=== PATIENT | female | born 1970 | race Caucasian/White ===

== ENCOUNTER 2016-09-17 00:13 | Inpatient (IN) | payer BC ==
[~2016-09-17] VITALS: Ht 167.6 cm; Wt 78.4 kg
[2016-09-17] VITALS (7 sets, daily range): BP systolic 100–156; BP diastolic 51–95; PULSE 71–90; RESP 14–20; TEMP 97–98.9; O2SAT 98–99
[~2016-09-17 00:13] MED LIST: BENI40TA30 PO; CALA240T PO
[2016-09-17] MEDS ORDERED: SODIUM CHLOR 0.9% 1000 ML INJ 1,000 ML IV ONE (00:39)
[2016-09-17] MEDS ORDERED: MYCOPHENOLATE MOFETIL 500 MG TAB PO SCH (00:45)
[2016-09-17] MEDS ORDERED: SODIUM CHLOR 0.9% IV SCH (00:45)
[2016-09-17] MEDS ORDERED: ANTITHYMOCYTE GLOB IV SCH (00:45)
[2016-09-17] MEDS ORDERED: ceFAZolin 2 GM PREMIX 50 ML IV SCH (00:45)
[2016-09-17] MEDS ORDERED: CUSTODIOL HTK IRR SOLN 2,000 ML IRRIGATION ONE (00:45)
[2016-09-17] MEDS ORDERED: CALC0.25 PO (01:39)
[2016-09-17 01:44] LABS: AUTOMATED NEUTROPHIL # 4.8 TH/MM3 (1.8-7.7); BASOPHIL # 0.1 TH/MM3 (0-0.2); EOSINOPHIL # 0.3 TH/MM3 (0-0.4); EOSINOPHIL % 2.9 % (0.0-4.0); HEMATOCRIT 30.7 % (35.0-46.0); HEMO FLAGS DIFF FINAL; LYMPH % 29.7 % (9.0-44.0); LYMPHOCYTE # 2.6 TH/MM3 (1.0-4.8); MEAN CELL VOLUME 90.2 FL (80.0-100.0); MEAN CORPUSCULAR HEMOGLOBIN 30.4 PG (27.0-34.0); MEAN CORPUSCULAR HGB CONC 33.7 % (32.0-36.0); MONO % 10.8 % (0.0-8.0); NEUT % 55.6 % (16.0-70.0); PLATELET COUNT 187 TH/MM3 (150-450); RED CELL DISTRIBUTION WIDTH 13.3 % (11.6-17.2); WHITE BLOOD COUNT 8.7 TH/MM3 (4.0-11.0)
[2016-09-17 01:56] LABS: APTT (PATIENT) 26.6 SEC (24.3-30.1); INTERNATIONAL NORMALIZED RATIO 0.9 RATIO; PROTHROMBIN TIME - PATIENT 10.2 SEC (9.8-11.6)
--- NOTE | 2016-09-17 01:56 | HHI.HP ---
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 her last GFR was 18; She is currently not on dialysis, and still makes near normal amounts of urine. She denies any recent F/C./N/V/D, no cough or exposure to illneses, denies possible , denies any wounds. Review of Systems Constitutional: DENIES: Diaphoretic episodes, Fatigue, Fever, Weight gain, Weight loss, Chills, Dizziness, Change in appetite, Night Sweats Endocrine: DENIES: Abnorml menstrual pattern, Heat/cold intolerance, Polydipsia , Polyuria, Polyphagia Eyes: DENIES: Blurred vision, Diplopia, Eye inflammation, Eye pain, Vision loss , Photosensitivity, Double Vision Ears, nose, mouth, throat: DENIES: Tinnitus, Hearing loss, Vertigo, Nasal discharge, Oral lesions, Throat pain, Hoarseness, Ear Pain, Running Nose, Epistaxis, Sinus Pain, Toothache, Odynophagia Respiratory: DENIES: Apneas, Cough, Snoring, Wheezing, Hemoptysis, Sputum production, Shortness of breath Cardiovascular: DENIES: Chest pain, Palpitations, Syncope, Dyspnea on Exertion , PND, Lower Extremity Edema, Orthopnea, Claudication Gastrointestinal: DENIES: Abdominal pain, Black stools, Bloody stools, Constipation, Diarrhea, Nausea, Vomiting, Difficulty Swallowing, Anorexia Genitourinary: DENIES: Abnormal vaginal bleeding, Dysmenorrhea, Dyspareunia, Sexual dysfunction, Urinary frequency, Urinary incontinence, Urgency, Hematuria , Dysuria, Nocturia, Vaginal discharge Musculoskeletal: DENIES: Joint pain, Muscle aches, Stiffness, Joint Swelling, Back pain, Neck pain Hematologic/lymphatic: DENIES: Bruising, Lymphadenopathy Neurologic: DENIES: Abnormal gait, Headache, Localized weakness, Paresthesias, Seizures, Speech Problems, Tremor, Poor Balance Psychiatric: DENIES: Anxiety, Confusion, Mood changes, Depression, Hallucinations, Agitation, Suicidal Ideation, Homicidal Ideation, Delusions Past Family Social History Allergies: Coded Allergies: Zithromax (Verified Adverse Reaction, Mild, 02/18/16) Past Medical History HTN IgA Nephropathy CKD leg cramps Past Surgical History Kidney Biopsy Reported Medications No ASA or blood thinners Family History No renal failure disease Social History Denies smoking or Etoh Physical Exam Physical Exam GENERAL: This is a well-nourished, well-developed patient, in no apparent distress. SKIN: No rashes, ecchymoses or lesions. Cool and dry. HEAD: Atraumatic. Normocephalic. No temporal or scalp tenderness. EYES: Pupils equal round and reactive. Extraocular motions intact. No scleral icterus. No injection or drainage. ENT: Nose without bleeding, purulent drainage . Throat without erythema, tonsillar hypertrophy or exudate. Airway patent. NECK: Trachea midline. No JVD or lymphadenopathy. Supple, nontender, no meningeal signs. CARDIOVASCULAR: Regular rate and rhythm with murmurs; no gallops, or rubs. RESPIRATORY: Clear to auscultation. Breath sounds equal bilaterally. No wheezes , rales, or rhonchi. GASTROINTESTINAL: Abdomen soft, non-tender, nondistended. No hepato-splenomegaly , or palpable masses. No guarding. MUSCULOSKELETAL: Extremities without clubbing, cyanosis, or edema. No joint tenderness, effusion, or edema noted. No calf tenderness. NEUROLOGICAL: Awake and alert. Motor and sensory grossly within normal limits. Five out of 5 muscle strength in all muscle groups. Normal speech. Laboratory Labs pending Imaging Chest XR read pending Assessment and Plan Assessment and Plan On 24 hr OBS for possible DD Kidney transplant; Discussed at length with patient and on the risks of graft failure and thrombosis from Pediatric donor kidneys, and they accept the riskd and are williing to proceed, pending crossmatch results. Questions from both patient and her answered. Humphrey Kirk MD Sep 17, 2016 01:56
[2016-09-17 02:03] LABS: ALT (GPT) 17 U/L (10-53); ANION GAP 10 MEQ/L (5-15); AST (GOT) 10 U/L (15-37); BICARBONATE 24.9 MEQ/L (21.0-32.0); BLOOD UREA NITROGEN 51 MG/DL (7-18); CHLORIDE 104 MEQ/L (98-107); GLOMERULAR FILTRATION RATE 16 ML/MIN (>89); POTASSIUM 4.3 MEQ/L (3.5-5.1); SODIUM (NA) 139 MEQ/L (136-145)
[2016-09-17 02:07] LABS: ALKALINE PHOSPHATASE 53 U/L (45-117); BETA HCG QUANT LESS THAN 1 MIU/ML (0-5); TOTAL BILIRUBIN ADULT 0.2 MG/DL (0.2-1.0)
[2016-09-17] MEDS ORDERED: SODIUM CHLORID 0.9% OTHER SCH (05:30)
[2016-09-17] MEDS ORDERED: BACITRACIN OTHER SCH (05:30)
--- NOTE | 2016-09-17 05:44 | RADRPT ---
EXAM DATE/TIME: 09/17/2016 05:14 [facility] COMPARISON: No previous studies available for comparison. INDICATIONS : Evaluate for pneumonia, pneumothorax or communicable disease. Kidney transplant MEDICAL HISTORY : None. SURGICAL HISTORY : None. ENCOUNTER: Initial ACUITY: 1 day PAIN SCORE: 0/10 LOCATION: Bilateral chest FINDINGS: PA and lateral views of the chest demonstrate the lungs to be symmetrically aerated without evidence of mass, infiltrate or effusion. The cardiomediastinal contours are unremarkable. Osseous structure s are intact. CONCLUSION: Normal examination. Robert Dukes MD on September 17, 2016 at 5:42 Board Certified Radiologist. This report was verified electronically.
[2016-09-17] MEDS ORDERED: DEXAMETHASONE SOD PHOS 4 MG/ML VIAL ONE (06:16)
[2016-09-17] MEDS ORDERED: MIDAZOLAM HCL 2 MG/2 ML VIAL ONE ×4 (06:16→12:52)
[2016-09-17] MEDS ORDERED: BUPIVACAINE HCL PF 0.5% 30 ML VIAL ONE (06:29)
[2016-09-17] MEDS ORDERED: diphenhydrAMINE HCL 50 MG/ML VIAL ONE (06:30)
[2016-09-17] MEDS ORDERED: SODIUM BICARBONATE 8.4% INJ 50 MEQ/50 ML SYR ONE (06:30)
[2016-09-17] MEDS ORDERED: methylPREDNISolone SOD SUCC 125 MG/2 ML VIAL ONE (06:30)
[2016-09-17] MEDS ORDERED: LIDOCAINE HCL 2% 50 ML VIAL ONE (06:30)
[2016-09-17] MEDS ORDERED: fentaNYL CITRATE 250 MCG/5 ML AMP ONE ×2 (06:43→07:13)
[2016-09-17] MEDS ORDERED: HYDROmorphone HCL PF 2 MG/ML VIAL ONE (06:43)
[2016-09-17] MEDS ORDERED: ACETAMINOPHEN 1000 MG/100 ML VIAL IV ONE (06:58)
[2016-09-17] MEDS: LACTATED RINGER'S 1000 ML IV SCH (07:15)
[2016-09-17] MEDS ORDERED: INSULIN HUMAN REGULAR 1,000 UNITS/10 ML VIAL SQ PRN (07:15)
[2016-09-17] MEDS: SODIUM CHLORID 0.9% 500 ML IV SCH ×2 (07:15→23:55)
[2016-09-17] MEDS ORDERED: METOPROLOL TARTRATE 25 MG TAB PO PRN (07:15)
[2016-09-17] MEDS ORDERED: CISATRACURIUM BESYLATE 20 MG/10 ML VIAL IV ONE (07:55)
[2016-09-17] MEDS ORDERED: NEOSTIGMINE 3 MG/3 ML SYR IV ONE (07:56)
[2016-09-17] MEDS ORDERED: PROPOFOL 200 MG/20 ML AMP IV ONE (07:56)
[2016-09-17] MEDS ORDERED: ePHEDrine/NS 25 MG/5 ML SYR IV ONE (07:56)
[2016-09-17] MEDS ORDERED: NORMOSOL R INJ 1,000 ML IV ONE (07:57)
[2016-09-17] MEDS ORDERED: PHENYLEPH/NS 1000 MCG/10 ML SYR IV ONE (07:57)
[2016-09-17] MEDS ORDERED: SODIUM CHLOR 0.9% 250 ML INJ 250 ML IV ONE (07:57)
[2016-09-17] MEDS ORDERED: HEPARIN SODIUM - SQ 10,000 UNITS/ML VIAL OTHER ONE (08:55)
[2016-09-17 09:09] LABS: BLOOD GAS BASE EXCESS -5.1 mmol/L (-2-2); BLOOD GAS CARBOXYHEMOGLOBIN 1.5 % (0-4); BLOOD GAS HCO3 19 mmol/L (22-26); BLOOD GAS METHEMOGLOBIN 1.2 % (0-2); BLOOD GAS O2 HGB SATURATION 97 % (90-100); BLOOD GAS OXYGEN CONTENT 14.6 Vol % (12.0-20.0); BLOOD GAS PCO2 30 mmHg (38-42); BLOOD GAS PO2 275 mmHg (61-120); BLOOD GAS TOTAL HGB 10.2 G/DL (12.0-16.0); CRITICAL VALUE NO; DRAW SITE ART LINE; FIO2 56 %; OXYGEN DEVICE OR; STAT YES; TEMP CORR TO 98.6
[2016-09-17] MEDS ORDERED: ceFAZolin INJ 1,000 MG VIAL IV ONE (10:10)
[2016-09-17 12:50] LABS: BLOOD GAS BASE EXCESS -6.8 mmol/L (-2-2); BLOOD GAS CARBOXYHEMOGLOBIN 1.2 % (0-4); BLOOD GAS HCO3 18 mmol/L (22-26); BLOOD GAS METHEMOGLOBIN 1.4 % (0-2); BLOOD GAS O2 HGB SATURATION 97 % (90-100); BLOOD GAS OXYGEN CONTENT 14.7 Vol % (12.0-20.0); BLOOD GAS PCO2 33 mmHg (38-42); BLOOD GAS PO2 275 mmHg (61-120); BLOOD GAS TOTAL HGB 10.3 G/DL (12.0-16.0); CRITICAL VALUE NO; FIO2 56 %; OXYGEN DEVICE OR; TEMP CORR TO 98.6
[2016-09-17] MEDS ORDERED: ceFAZolin INJ 1,000 MG VIAL ONE (14:15)
--- NOTE | 2016-09-17 14:49 | EKG ---
Date Performed: 09/17/2016 Time Performed: 01:43:06 PTAGE: 46 years EKG: Sinus rhythm Normal ECG NO PREVIOUS TRACING DOCTOR: Doroteo Toledo Interpretating Date/Time 09/17/2016 14:42:39
[2016-09-17] MEDS ORDERED: DO NOT ADM ANY ANTICOAGULANT DRUGS XX PRN (15:07)
[2016-09-17] MEDS ORDERED: *LABETALOL HCL 100 MG/20 ML VIAL PERIprocedural Use ONLY ONE (15:13)
[2016-09-17] MEDS ORDERED: *morphine SULFATE 8 MG/ML PERIprocedure ONLY ONE ×3 (15:28→16:10)
[2016-09-17] MEDS ORDERED: *ONDANSETRON 4 MG VIAL PERIprocedural Use ONLY ONE (15:28)
[2016-09-17] MEDS ORDERED: NALOXONE HCL 0.4 MG/ML AMP IV PRN (16:30)
[2016-09-17] MEDS ORDERED: MORPHINE SULFATE 30 MG/30 ML PCA IV SCH (16:30)
[2016-09-17] MEDS ORDERED: diphenhydrAMINE HCL 25 MG CAP PO PRN (16:30)
[2016-09-17] MEDS ORDERED: GLUCAGON 1 MG/ML VIAL OTHER PRN (16:30)
[2016-09-17] MEDS ORDERED: RESP: ALBUTEROL 2.5 MG/IPRATROPIUM 0.5 MG NEB (PRN) INH (16:30)
[2016-09-17] MEDS ORDERED: DEXTROSE 50% IN WATER 50 ML VIAL(D50) IV PUSH PRN (16:30)
[2016-09-17] MEDS ORDERED: ONDANSETRON INJ 8 MG in DEXTROSE 5% IN WATER INJ 50 ML IV PRN ×2 (16:30)
[2016-09-17] MEDS ORDERED: diphenhydrAMINE HCL 50 MG/ML VIAL IV PRN (16:30)
--- NOTE | 2016-09-17 16:34 | RADRPT ---
EXAM DATE/TIME: 09/17/2016 15:35 [facility] COMPARISON: No previous studies available for comparison. INDICATIONS : Central line placement. MEDICAL HISTORY : None. SURGICAL HISTORY : kidney transplant ENCOUNTER: Initial ACUITY: 1 day PAIN SCORE: 0/10 LOCATION: Bilateral chest FINDINGS: A single view of the chest demonstrates the lungs to be symmetrically aerated without evidence of mas s, infiltrate or effusion. The cardiomediastinal contours are unremarkable. The right internal jugu lar central line has its tip in the superior vena cava in good position. No pneumothorax is noted. Os seous structures are intact. CONCLUSION: Right internal jugular central line has its tip in the superior vena cava. No pneumot horax is noted. José Miguel Tapia MD on September 17, 2016 at 16:32 Board Certified Radiologist. This report was verified electronically.
--- NOTE | 2016-09-17 16:41 | PD.OP ---
Operative Report Date of Surgery: Sep 17, 2016 Preoperative Diagnosis: (1) CKD (chronic kidney disease) stage 4, GFR 15-29 ml/min Postoperative Diagnosis: (1) CKD (chronic kidney disease) stage 4, GFR 15-29 ml/min Procedure: Preparation and reimplantation of transplant kidney ureters Anesthesia: General Surgeon: Francisco Dos Santos Hris Manager(s): Dr. Kalani Kirk Operation and Findings: Consulted intraoperatively to assist with preparation and reimplantation of transplant ureters from a cadaveric pediatric donor with en block kidneys/ ureters Urologic surgery component of procedures: Upon completion of the vascular anastomoses from the donor specimen, I proceeded with positioning, tailoring and reimplantation of the 2 transplant ureters. The bladder was filled via a three-way Slater with 500 cc normal saline and transplant sites were marked. The Bovie cautery was then utilized to dissect down to the mucosal layer of the bladder. Stay sutures were then placed utilizing 6-0 PDS material. The ureters were trimmed down to viable tissue and spatulated utilizing Goff scissors. And the initial suture consisting of 6-0 PDS was placed in position via the heel of the spatulated ureters, the bladder insertion sites were sharply opened between the stay sutures. And the spatulated ureters were anastomosed utilizing the 6-0 PDS suture in a running fashion. Edges of the bladder serosa was then mobilized over the anastomotic site and secured with 6- 0 PDS as well. This completes the urologic surgery portion of combined procedures on this patient. Francisco Dos Santos MD Sep 17, 2016 16:40
[2016-09-17] MEDS: DEXT 5%-NACL 0.45% 1000 ML INJ 1,000 ML IV SCH (17:00)
[2016-09-17 17:18] LABS: AUTOMATED NEUTROPHIL # 14.9 TH/MM3 (1.8-7.7); BASOPHIL # 0.1 TH/MM3 (0-0.2); BASOPHIL % 0.5 % (0.0-2.0); EOSINOPHIL % 0.1 % (0.0-4.0); HEMATOCRIT 28.4 % (35.0-46.0); HEMO FLAGS DIFF FINAL; LYMPH % 0.3 % (9.0-44.0); MEAN CELL VOLUME 90.6 FL (80.0-100.0); MEAN CORPUSCULAR HEMOGLOBIN 30.4 PG (27.0-34.0); MEAN CORPUSCULAR HGB CONC 33.5 % (32.0-36.0); MONO % 1.9 % (0.0-8.0); NEUT % 97.2 % (16.0-70.0); PLATELET COUNT 135 TH/MM3 (150-450); RED BLOOD COUNT 3.13 MIL/MM3 (4.00-5.30); RED CELL DISTRIBUTION WIDTH 13.3 % (11.6-17.2); WHITE BLOOD COUNT 15.3 TH/MM3 (4.0-11.0)
[2016-09-17 17:35] LABS: BICARBONATE 20.6 MEQ/L (21.0-32.0); MAGNESIUM 2.1 MG/DL (1.5-2.5); POTASSIUM 4.6 MEQ/L (3.5-5.1)
[2016-09-17 17:50] LABS: CALCIUM-PROTEIN CORRECTED 7.8 MG/DL (8.5-10.1)
[2016-09-17] MEDS: VERAPAMIL HCL 240 MG SUSTAINED RELEASE TAB PO ONE ×2 (19:30→20:40)
[2016-09-17] MEDS: DOCUSATE SODIUM 100 MG CAP PO SCH (21:36)
[2016-09-17] MEDS: INSULIN NovoLIN REGULAR SUPPLEMENTAL SCALE SQ SCH (21:36)
[2016-09-17] MEDS: NYSTATIN SUSP 500,000 U/5 ML CUP SWISH-SWAL SCH (21:37)
--- NOTE | 2016-09-17 21:38 | MB ---
cc: WILLY MCLEAN MD DATE OF CONSULTATION 09/17/16 REASON FOR CONSULTATION Post renal transplant status. HISTORY OF PRESENT ILLNESS This is a very pleasant 46-year-old female with past medical history of chronic kidney disease because of IgA nephropathy, history of hypertension who was admitted for cadaveric renal transplant. The patient underwent the surgery uneventfully. Her GFR has been 18 mL per minute pre transplant and she has never been on dialysis. She was evaluated by Dr. Gil in the transplant clinic in March. The patient was awake, alert and feeling better. There is no shortness of breath. No chest pain. No cough, no history of fever. PAST MEDICAL HISTORY 1. Hypertension. 2. IgA nephropathy, 3. Chronic kidney disease, 4. History of leg cramps PAST SURGICAL HISTORY None except kidney biopsy. REVIEW OF SYSTEMS Denies any history of fever. No sore throat. No headache, dizziness or blurring of vision. No shortness of breath. No chest pain. No palpitation. No nausea, vomiting. No abdominal pain. No history of diarrhea. She has mild pain at the site of the transplant. SOCIAL HISTORY There is no history of smoking or alcoholism FAMILY HISTORY Negative for any renal disease. ALLERGIES ZITHROMAX MEDICATIONS Currently 1. Mycophenolate 1 gram b.i.d. 2. Calcium carbonate 500 mg b.i.d. 3. She was given antithrombocyte ____cyclovir 900 mg once a day 4. Bactrim DS 1 tablet Wednesday, Wednesday, Wednesday. 5. Protonix 40 mg once a day, 6. Cephazolin 1 gram IV q.8 h. 7. Insulin sliding scale. 8. Metoprolol as needed. 9. Clonidine as needed. 10. Zofran as needed PHYSICAL EXAMINATION GENERAL: On examination, the patient is awake, alert. She is not in acute distress. VITAL SIGNS: Last blood pressure is 150/85, temperature is 97.8, oxygen saturation is 99% on 2 liters nasal cannula. HEENT: Pupils equally reacting to light. Nonicteric sclerae. Conjunctivae pale. NECK: Supple. JVD is not elevated LUNGS: The patient has bilateral good air entry. No wheezing. HEART: S1, S2, regular rhythm. ABDOMEN: Soft, lax. There is some tenderness around the surgical site. EXTREMITIES: There is no leg edema LABORATORY DATA WBC count is 15.3, hemoglobin 9.5, platelet count 135, neutrophils 97.2%. Sodium 141. Potassium 4.6, chloride 111, bicarb 20.6, BUN 47, creatinine 12.86. Calcium corrected 7.8, phosphorus 4.7. Magnesium is 2.1, total protein is 5.5. Albumin is 3.8. HCG was less than one, INR 0.9. IMAGING STUDIES The patient had a chest x-ray done which shows lung field clear. ASSESSMENT/PLAN 1. Post cadaveric renal transplant 2. Chronic kidney disease with history of IgA nephropathy. 3. Hypertension 4. Anemia Patient had cadaveric renal transplant done. She has slight increase in her blood pressure. She has been at home on Verapamil so we will put her on the same dose 240 mg and continue the p.r.n. medications for the blood pressure. Thank you for the consultation and I will follow the patient while she is in the hospital. MD SANDY Beltrán/ /6:57 PM /9:21 PM
[2016-09-17] MEDS: PCA - TOTAL MG MORPHINE DELIVERED PER SHIFT SCH (22:00)
[2016-09-18] VITALS (11 sets, daily range): BP systolic 129–140; BP diastolic 67–86; PULSE 76–110; RESP 12–20; TEMP 98.6–99; O2SAT 95–99
[2016-09-18 05:37] LABS: AUTOMATED NEUTROPHIL # 12.2 TH/MM3 (1.8-7.7); BASOPHIL # 0.1 TH/MM3 (0-0.2); BASOPHIL % 0.5 % (0.0-2.0); HEMO FLAGS DIFF FINAL; LYMPH % 0.6 % (9.0-44.0); LYMPHOCYTE # 0.1 TH/MM3 (1.0-4.8); MEAN CELL VOLUME 90.7 FL (80.0-100.0); MEAN CORPUSCULAR HGB CONC 33.1 % (32.0-36.0); MONO % 2.7 % (0.0-8.0); NEUT % 96.2 % (16.0-70.0); PLATELET COUNT 121 TH/MM3 (150-450); RED BLOOD COUNT 2.98 MIL/MM3 (4.00-5.30); RED CELL DISTRIBUTION WIDTH 13.8 % (11.6-17.2); WHITE BLOOD COUNT 12.6 TH/MM3 (4.0-11.0)
[2016-09-18] MEDS: PCA - TOTAL MG MORPHINE DELIVERED PER SHIFT SCH (06:00)
[2016-09-18] MEDS: MYCOPHENOLATE MOFETIL 500 MG TAB PO SCH (06:01)
[2016-09-18 06:13] LABS: BICARBONATE 18.1 MEQ/L (21.0-32.0); MAGNESIUM 2.5 MG/DL (1.5-2.5); POTASSIUM 4.8 MEQ/L (3.5-5.1)
[2016-09-18 06:26] LABS: CALCIUM-PROTEIN CORRECTED 7.6 MG/DL (8.5-10.1)
[2016-09-18] MEDS: INSULIN NovoLIN REGULAR SUPPLEMENTAL SCALE SQ SCH ×4 (07:00→21:00)
[2016-09-18] MEDS: LACTATED RINGER'S 1000 ML IV SCH (07:15)
[2016-09-18] MEDS ORDERED: DEXT 5%-NACL 0.45% 500 ML INJ 500 ML IV ONE (08:30)
[2016-09-18] MEDS: DOCUSATE SODIUM 100 MG CAP PO SCH ×2 (09:00→20:40)
[2016-09-18] MEDS ORDERED: CALCIUM CARBONATE 500 MG CHEWABLE TAB CHEW SCH (09:00)
[2016-09-18] MEDS: SULFAMETHOXAZOLE-TRIMETHOPRIM DS 800-160 MG TAB PO SCH (09:00)
[2016-09-18] MEDS: NYSTATIN SUSP 500,000 U/5 ML CUP SWISH-SWAL SCH ×3 (09:00→20:34)
--- NOTE | 2016-09-18 09:07 | HHI.PR ---
Subjective Remarks Awake and alert this AM, slept well overnight, had some N/V with PO meds, c/o RLQ discomfort, no flatus Objective Laboratory Tests Test 09/17/16 09/17/16 09/18/16 12:37 16:50 05:22 Blood Gas Puncture Site DRAWN IN OR Blood Gas Patient Temperature 98.6 Blood Gas HCO3 18 Blood Gas Base Excess -6.8 Blood Gas Oxygen Saturation 97 Arterial Blood pH 7.35 Arterial Blood Partial 33 Pressure CO2 Arterial Blood Partial 275 Pressure O2 Arterial Blood Oxygen Content 14.7 Arterial Blood 1.2 Carboxyhemoglobin Arterial Blood Methemoglobin 1.4 Blood Gas Hemoglobin 10.3 Oxygen Delivery Device OR Blood Gas Inspired Oxygen 56 White Blood Count 15.3 12.6 Red Blood Count 3.13 2.98 Hemoglobin 9.5 8.9 Hematocrit 28.4 27.0 Mean Corpuscular Volume 90.6 90.7 Mean Corpuscular Hemoglobin 30.4 30.0 Mean Corpuscular Hemoglobin 33.5 33.1 Concent Red Cell Distribution Width 13.3 13.8 Platelet Count 135 121 Mean Platelet Volume 9.2 9.1 Neutrophils (%) (Auto) 97.2 96.2 Lymphocytes (%) (Auto) 0.3 0.6 Monocytes (%) (Auto) 1.9 2.7 Eosinophils (%) (Auto) 0.1 0.0 Basophils (%) (Auto) 0.5 0.5 Neutrophils # (Auto) 14.9 12.2 Lymphocytes # (Auto) 0.0 0.1 Monocytes # (Auto) 0.3 0.3 Eosinophils # (Auto) 0.0 0.0 Basophils # (Auto) 0.1 0.1 CBC Comment DIFF FINAL DIFF FINAL Differential Comment Sodium Level 141 141 Potassium Level 4.6 4.8 Chloride Level 111 113 Carbon Dioxide Level 20.6 18.1 Anion Gap 9 10 Blood Urea Nitrogen 47 47 Creatinine 2.86 2.52 Estimat Glomerular Filtration 18 21 Rate Random Glucose 203 140 Calcium Level 7.0 6.8 Protein Corrected Calcium 7.8 7.6 Phosphorus Level 4.7 4.0 Magnesium Level 2.1 2.5 Total Protein 5.5 5.5 Vital Signs Date Time Temp Pulse Resp B/P Pulse Ox O2 Delivery O2 Flow Rate FiO2 09/18/16 08:00 96 Room Air 09/18/16 08:00 99.0 92 20 131/78 96 135/72 09/18/16 07:00 99 09/18/16 06:00 18 09/18/16 03:00 99 Nasal Cannula 2.00 09/18/16 03:00 76 09/18/16 03:00 99.0 81 20 99 130/67 09/17/16 23:00 75 09/17/16 23:00 98.7 78 20 100/54 99 110/67 09/17/16 23:00 99 Nasal Cannula 2.00 09/17/16 22:00 18 09/17/16 21:13 99 Nasal Cannula 2.00 09/17/16 21:00 108/51 09/17/16 20:00 118/64 09/17/16 19:00 82 09/17/16 19:00 98 Nasal Cannula 2.00 09/17/16 19:00 98.9 71 18 145/78 98 144/93 09/17/16 18:00 97.8 89 14 155/88 98 09/17/16 18:00 98 Room Air 09/17/16 17:30 80 16 111/75 99 Nasal Cannula 2 09/17/16 17:00 84 16 137/87 99 Nasal Cannula 2 09/17/16 16:45 76 16 123/71 99 Nasal Cannula 2 09/17/16 16:30 74 16 115/64 99 Nasal Cannula 2 09/17/16 16:15 72 16 115/72 99 Nasal Cannula 2 09/17/16 16:00 70 16 128/73 99 Nasal Cannula 2 09/17/16 15:45 74 16 145/75 99 Nasal Cannula 2 09/17/16 15:30 88 16 151/79 99 Nasal Cannula 2 09/17/16 15:15 120 16 173/117 99 Nasal Cannula 2 09/17/16 15:07 97.8 104 16 164/101 99 Nasal Cannula 2 I/O 09/17/16 09/17/16 09/17/16 09/18/16 09/18/16 09/18/16 07:00 15:00 23:00 07:00 15:00 23:00 Intake Total 0 ml 200 ml 1631 ml Output Total 1100 ml 150 ml 451 ml Balance -1100 ml 50 ml 1180 ml Intake Oral 0 ml 600 ml IV Total 0 ml 200 ml 1031 ml Output Urine Total 1100 ml 150 ml 401 ml Drainage Total 50 ml # Bowel Movements 2 0 Result Diagram: 09/18/1652109/18/16521 Other Results Mouth: dry Abd: soft, NT, ND; dressing C/D/I Slater: [place] urine Drain: serosang Assessment and Plan Assessment and Plan Recovering ok from anesthesia; appears dry, will bolus and increase maintenance IVF; increase PO calcium; d/c [place], but will keep on bedrest for graft adherance. Humphrey Kirk MD Sep 18, 2016 09:07
[2016-09-18] MEDS: PANTOPRAZOLE SODIUM 40 MG VIAL IV PUSH SCH (09:47)
--- NOTE | 2016-09-18 09:47 | HHI.PR ---
Subjective Patient symptoms today Postop day #1 Overall doing well with the exception of feeling nauseated Pain well managed Objective Vital Signs Vital Signs Date Time Temp Pulse Resp B/P Pulse Ox O2 Delivery O2 Flow Rate FiO2 09/18/16 08:00 96 Room Air 09/18/16 08:00 99.0 92 20 131/78 96 135/72 09/18/16 07:00 99 09/18/16 06:00 18 09/18/16 03:00 99 Nasal Cannula 2.00 09/18/16 03:00 76 09/18/16 03:00 99.0 81 20 99 130/67 09/17/16 23:00 75 09/17/16 23:00 98.7 78 20 100/54 99 110/67 09/17/16 23:00 99 Nasal Cannula 2.00 09/17/16 22:00 18 09/17/16 21:13 99 Nasal Cannula 2.00 09/17/16 21:00 108/51 09/17/16 20:00 118/64 09/17/16 19:00 82 09/17/16 19:00 98 Nasal Cannula 2.00 09/17/16 19:00 98.9 71 18 145/78 98 144/93 09/17/16 18:00 97.8 89 14 155/88 98 09/17/16 18:00 98 Room Air 09/17/16 17:30 80 16 111/75 99 Nasal Cannula 2 09/17/16 17:00 84 16 137/87 99 Nasal Cannula 2 09/17/16 16:45 76 16 123/71 99 Nasal Cannula 2 09/17/16 16:30 74 16 115/64 99 Nasal Cannula 2 09/17/16 16:15 72 16 115/72 99 Nasal Cannula 2 09/17/16 16:00 70 16 128/73 99 Nasal Cannula 2 09/17/16 15:45 74 16 145/75 99 Nasal Cannula 2 09/17/16 15:30 88 16 151/79 99 Nasal Cannula 2 09/17/16 15:15 120 16 173/117 99 Nasal Cannula 2 09/17/16 15:07 97.8 104 16 164/101 99 Nasal Cannula 2 Intake & Output 09/18/16 09/18/16 07:00 19:00 Intake Total 1631 ml Output Total 451 ml Balance 1180 ml Intake Oral 600 ml IV Total 1031 ml Output Urine Total 401 ml Drainage Total 50 ml # Bowel Movements 0 Result Diagram: 09/18/1652109/18/16521 Objective Remarks Abdomen soft, nondistended nontender Dressing intact Extremities well-perfused Slater catheter in place and draining blood-tinged urine Medications and IVs Current Medications Medications (Trade) Dose Ordered Sig/Karol Route Start Time Stop Time Status Last Admin (Lr 1000 ml Inj) 1,000 ml @ 30 mls/hr Q24H IV 09/17/16 07:15 Miscellaneous Information ALL NURSING DEPARTME... UNSCH PRN XX 09/17/16 15:07 09/18/16 15:06 Dextrose/Sodium Chloride 1,000 ml @ 83 mls/hr Q12H3M IV 09/17/16 16:22 09/17/16 17:00 (1/2 NS 1000 ml Inj) 1,000 ml @ 0 mls/hr Q0M IV 09/17/16 16:22 (Cellcept) 1,000 mg BID@06,18 PO 09/18/16 06:00 09/18/16 06:01 (Mycostatin Liq) 5 ml TID@,,21 SWISH-SWAL 09/17/16 21:00 09/17/16 21:37 (Bactrim Ds 800-160 Mg) 1 tab MoWeFr@09 PO 09/18/16 09:00 (Valcyte) 900 mg DAILY PO 09/18/16 09:00 (Protonix Inj) 40 mg DAILY IV PUSH 09/18/16 09:00 (Colace) 100 mg BID PO 09/17/16 21:00 09/17/16 21:36 (Dulcolax Ec) 10 mg UNSCH PRN PO 09/20/16 16:30 09/20/16 16:31 (Dulcolax Supp) 10 mg UNSCH PRN RECTAL 09/20/16 16:30 09/20/16 16:31 Ondansetron HCl 4 mg 4 mg Q6H PRN IV 09/17/16 16:30 (Zofran Inj/D5W Inj) 54 ml @ 200 mls/hr Q6H PRN IV 09/17/16 16:30 09/18/16 05:45 (Benadryl) 25 mg Q6H PRN PO 09/17/16 16:30 (Benadryl Inj) 25 mg Q6H PRN IV 09/17/16 16:30 (Narcan Inj) 0.4 mg UNSCH PRN IV 09/17/16 16:30 (Morphine 1 Mg/ ml [employer]) 30 mg UNSCH IV 09/17/16 16:30 [employer] Dosage Infused (Pha) 1 Q8HR .XX 09/17/16 22:00 09/18/16 06:00 (D50w (Vial) Inj) 25 ml UNSCH PRN IV PUSH 09/17/16 16:30 Glucagon 1 mg 1 mg UNSCH PRN OTHER 09/17/16 16:30 (D5W-1/2 NS 500 ml Inj) 500 ml @ 125 mls/hr BOLUS ONCE IV 09/18/16 08:30 09/18/16 12:29 (Tums Chew) 500 mg TID CHEW 09/18/16 13:00 Assessment and Plan Assessment and Plan Urologic impression: Status post cadaveric kidney transplant utilizing two en block pediatric kidneys with expected postop course. Plan: #1 further management as per transplant and nephrology services. #2 will be available as needed during present hospitalization. Francisco Dos Santos MD Sep 18, 2016 09:47
[2016-09-18] MEDS: ONDANSETRON HCL 4 MG/2 ML VIAL IV PRN (11:46)
[2016-09-18] MEDS: CALCIUM CARBONATE 500 MG CHEWABLE TAB CHEW SCH ×2 (11:47→17:31)
--- NOTE | 2016-09-18 12:30 | HHI.NPPN ---
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 Additional Remarks Patient has anxiety, crying and has pain at surgery site, no SOB. Review of Systems General Constitutional: Fatigue Objective Data Data 09/17/16 09/18/16 19:00 07:00 Intake Total 200 ml 1631 ml Output Total 150 ml 451 ml Balance 50 ml 1180 ml Intake Oral 600 ml IV Total 200 ml 1031 ml Output Urine Total 150 ml 401 ml Drainage Total 50 ml # Bowel Movements 0 Vital Signs Date Time Temp Pulse Resp B/P Pulse Ox O2 Delivery O2 Flow Rate FiO2 09/18/16 12:00 98 Nasal Cannula 09/18/16 12:00 99.0 92 20 131/78 96 135/72 09/18/16 12:00 82 09/18/16 08:00 96 Room Air 09/18/16 08:00 99.0 92 20 131/78 96 135/72 09/18/16 07:00 99 09/18/16 06:00 18 09/18/16 03:00 99 Nasal Cannula 2.00 09/18/16 03:00 76 09/18/16 03:00 99.0 81 20 99 130/67 09/17/16 23:00 75 09/17/16 23:00 98.7 78 20 100/54 99 110/67 09/17/16 23:00 99 Nasal Cannula 2.00 09/17/16 22:00 18 09/17/16 21:13 99 Nasal Cannula 2.00 09/17/16 21:00 108/51 09/17/16 20:00 118/64 09/17/16 19:00 82 09/17/16 19:00 98 Nasal Cannula 2.00 09/17/16 19:00 98.9 71 18 145/78 98 144/93 09/17/16 18:00 97.8 89 14 155/88 98 09/17/16 18:00 98 Room Air 09/17/16 17:30 80 16 111/75 99 Nasal Cannula 2 09/17/16 17:00 84 16 137/87 99 Nasal Cannula 2 09/17/16 16:45 76 16 123/71 99 Nasal Cannula 2 09/17/16 16:30 74 16 115/64 99 Nasal Cannula 2 09/17/16 16:15 72 16 115/72 99 Nasal Cannula 2 09/17/16 16:00 70 16 128/73 99 Nasal Cannula 2 09/17/16 15:45 74 16 145/75 99 Nasal Cannula 2 09/17/16 15:30 88 16 151/79 99 Nasal Cannula 2 09/17/16 15:15 120 16 173/117 99 Nasal Cannula 2 09/17/16 15:07 97.8 104 16 164/101 99 Nasal Cannula 2 -: 09/18/16 0522 09/18/16 0522 Physical Exam General Appearance: No Acute Distress, Comfortable Eyes Eye Exam: Pupils Equal Throat Throat Exam: Oral Mucosa [place] & Moist Neck Neck Exam: Neck Supple Pulmonary Resp Exam: Clear Bilaterally, Breath Sounds Equal, No Distress Cardiology CV Exam: Regular Gastrointestinal/Abdomen GI Exam: Soft, Bowel Sounds Present, Distended Extremeties Extremities Exam: No Edema Neurologic Neuro Exam: Alert, Awake, Oriented Psychiatric Psych Exam: Appropriate Responses Assessment/Plan Assessment Summary: Hypertension, Transplant Kidney Status Electrolyte Assessment: Hypocalcemia Problem List: (1) Hypertension (2) CKD (chronic kidney disease) stage 4, GFR 15-29 ml/min (3) Hypocalcemia (4) Renal transplant, status post Plan Patient has anxiety, will give Ativan. Has nausea with Morphine, will try Dilaudid. BP increase due to pain and anxiety, was better. ATG again today, 1.5 mg/kg. Creatinine is slightly better. Calcium is low and started PO replacement. Follow urine out put and BMP. Possibly to start Prograf in AM. Odilia Huff MD Sep 18, 2016 12:29
[2016-09-18] MEDS: HYDROmorphone HCL PF 1 MG/ML VIAL IV PUSH PRN ×2 (12:47→19:14)
[2016-09-18] MEDS ORDERED: [UNRECOGNIZED DRUG - OTHER] XX PRN (14:00)
[2016-09-18] MEDS ORDERED: PROCHLORPERAZINE INJ 10 MG/2 ML VIAL IVP ONE (14:00)
[2016-09-18] MEDS ORDERED: PROCHLORPERAZINE INJ 10 MG/2 ML VIAL IV ONE (14:15)
[2016-09-18] MEDS: WATE IV SCH ×2 (18:11)
[2016-09-18] MEDS: DEXTROSE 5% IV SCH ×2 (18:11)
[2016-09-18] MEDS: MYCOPHENOLATE MOFETIL IV SCH ×2 (18:11)
[2016-09-18] MEDS ORDERED: methylPREDNISolone SOD SUCC 125 MG/2 ML VIAL IV ONE (19:00)
[2016-09-18] MEDS: PROCHLORPERAZINE INJ 10 MG/2 ML VIAL IVP PRN (19:27)
[2016-09-18] MEDS ORDERED: diphenhydrAMINE HCL 50 MG CAP PO ONE (19:30)
[2016-09-18] MEDS ORDERED: ACETAMINOPHEN 325 MG TAB PO ONE (19:30)
[2016-09-18] MEDS ORDERED: diphenhydrAMINE HCL 50 MG/ML VIAL IV PUSH ONE (19:30)
[2016-09-18] MEDS ORDERED: SODIUM CHLORID 0.9% IV-CENTRAL ONE (20:00)
[2016-09-18] MEDS ORDERED: ANTITHYMOCYTE GLOB IV-CENTRAL ONE (20:00)
[2016-09-18] MEDS: DEXT 5%-NACL 0.45% 1000 ML INJ 1,000 ML IV SCH (20:24)
[2016-09-18] MEDS: SODIUM CHLOR 0.45% 1000 ML INJ 1,000 ML IV SCH (20:24)
[2016-09-18] MEDS: LORazepam 1 MG TAB PO PRN (20:33)
[2016-09-19] VITALS (8 sets, daily range): BP systolic 138–172; BP diastolic 84–106; PULSE 75–128; RESP 12–22; TEMP 98.1–98.9; O2SAT 96–97
[2016-09-19] MEDS: HYDROmorphone HCL PF 1 MG/ML VIAL IV PUSH PRN ×4 (01:20→21:10)
[2016-09-19] MEDS: PROCHLORPERAZINE INJ 10 MG/2 ML VIAL IVP PRN ×3 (01:25→21:33)
[2016-09-19] MEDS: SODIUM CHLOR 0.45% 1000 ML INJ 1,000 ML IV SCH ×4 (05:30→21:33)
[2016-09-19] MEDS: DEXTROSE 5% IV SCH ×2 (05:31)
[2016-09-19] MEDS: MYCOPHENOLATE MOFETIL IV SCH ×2 (05:31)
[2016-09-19] MEDS: WATE IV SCH ×2 (05:31)
[2016-09-19] MEDS: DEXT 5%-NACL 0.45% 1000 ML INJ 1,000 ML IV SCH ×3 (05:32→21:33)
[2016-09-19 06:00] LABS: BASOPHIL % 0.1 % (0.0-2.0); HEMATOCRIT 26.5 % (35.0-46.0); LYMPH % 1.3 % (9.0-44.0); LYMPHOCYTE # 0.1 TH/MM3 (1.0-4.8); MEAN CELL VOLUME 91.3 FL (80.0-100.0); MEAN CORPUSCULAR HEMOGLOBIN 30.5 PG (27.0-34.0); MEAN CORPUSCULAR HGB CONC 33.4 % (32.0-36.0); MONO % 3.4 % (0.0-8.0); NEUT % 95.2 % (16.0-70.0); PLATELET COUNT 76 TH/MM3 (150-450); RED CELL DISTRIBUTION WIDTH 13.7 % (11.6-17.2); WHITE BLOOD COUNT 4.2 TH/MM3 (4.0-11.0)
[2016-09-19 06:06] LABS: HEMO FLAGS AUTO DIFF
[2016-09-19 06:32] LABS: BICARBONATE 21.6 MEQ/L (21.0-32.0); MAGNESIUM 2.3 MG/DL (1.5-2.5); POTASSIUM 4.6 MEQ/L (3.5-5.1)
[2016-09-19] MEDS: INSULIN NovoLIN REGULAR SUPPLEMENTAL SCALE SQ SCH ×4 (06:42→21:36)
[2016-09-19 06:51] LABS: CALCIUM-PROTEIN CORRECTED 7.6 MG/DL (8.5-10.1)
[2016-09-19] MEDS: LACTATED RINGER'S 1000 ML IV SCH (07:15)
[2016-09-19] MEDS: NYSTATIN SUSP 500,000 U/5 ML CUP SWISH-SWAL SCH ×3 (08:52→20:07)
[2016-09-19] MEDS: DOCUSATE SODIUM 100 MG CAP PO SCH ×2 (08:53→20:08)
[2016-09-19] MEDS: CALCIUM CARBONATE 500 MG CHEWABLE TAB CHEW SCH ×3 (08:53→18:10)
[2016-09-19] MEDS: PANTOPRAZOLE SODIUM 40 MG VIAL IV PUSH SCH (08:54)
[2016-09-19 09:05] LABS: PLATELET ESTIMATE SMEAR LOW (NORMAL); PLATELET MORPHOLOGY NORMAL (NORMAL); SCAN/DIFF AUTO DIFF CONFIRMED
--- NOTE | 2016-09-19 10:03 | HHI.PR ---
Subjective Remarks Awake but drowsy this AM, received pain meds early this morning; has N/V with narcotics, symptomatic relief with Compazine, passed flatus; had 1 hour of marked decrease of urine output to none, Slater exchanged with clot noted on tip , new Slater placed with good flow re-established; 450 cc collected; Objective Laboratory Tests Test 09/19/16 05:40 White Blood Count 4.2 Red Blood Count 2.90 Hemoglobin 8.8 Hematocrit 26.5 Mean Corpuscular Volume 91.3 Mean Corpuscular Hemoglobin 30.5 Mean Corpuscular Hemoglobin 33.4 Concent Red Cell Distribution Width 13.7 Platelet Count 76 Mean Platelet Volume 9.9 Neutrophils (%) (Auto) 95.2 Lymphocytes (%) (Auto) 1.3 Monocytes (%) (Auto) 3.4 Eosinophils (%) (Auto) 0.0 Basophils (%) (Auto) 0.1 Neutrophils # (Auto) 4.0 Lymphocytes # (Auto) 0.1 Monocytes # (Auto) 0.1 Eosinophils # (Auto) 0.0 Basophils # (Auto) 0.0 CBC Comment AUTO DIFF Differential Comment AUTO DIFF CONFIRMED Platelet Estimate LOW Platelet Morphology Comment NORMAL Sodium Level 141 Potassium Level 4.6 Chloride Level 113 Carbon Dioxide Level 21.6 Anion Gap 6 Blood Urea Nitrogen 20 Creatinine 1.21 Estimat Glomerular Filtration 48 Rate Random Glucose 164 Calcium Level 6.8 Protein Corrected Calcium 7.6 Phosphorus Level 2.2 Magnesium Level 2.3 Total Protein 5.6 Vital Signs Date Time Temp Pulse Resp B/P Pulse Ox O2 Delivery O2 Flow Rate FiO2 09/19/16 09:19 21 09/19/16 07:00 98.6 75 22 155/92 97 09/19/16 07:00 97 Room Air 09/19/16 07:00 75 09/19/16 04:00 98.9 87 12 138/88 96 09/19/16 03:00 96 Room Air 09/19/16 03:00 84 09/18/16 23:00 85 09/18/16 23:00 98.7 91 12 129/81 96 09/18/16 23:00 96 Room Air 09/18/16 22:05 97 21 09/18/16 19:30 98.7 89 20 129/86 96 09/18/16 19:00 110 09/18/16 19:00 96 Room Air 09/18/16 17:44 95 21 09/18/16 15:37 97 Nasal Cannula 09/18/16 15:17 98.6 92 20 140/79 96 Arterial Line 09/18/16 15:00 86 09/18/16 13:17 18 09/18/16 12:00 98 Nasal Cannula 09/18/16 12:00 98.9 92 20 129/80 96 Arterial Line 09/18/16 12:00 82 I/O 09/18/16 09/18/16 09/18/16 09/19/16 09/19/16 09/19/16 07:00 15:00 23:00 07:00 15:00 23:00 Intake Total 1631 ml 2400 ml 4345 ml Output Total 451 ml 1105 ml 2515 ml Balance 1180 ml 1295 ml 1830 ml Intake Oral 600 ml 240 ml 240 ml IV Total 1031 ml 2160 ml 4105 ml Output Urine Total 401 ml 1060 ml 2495 ml Drainage Total 50 ml 45 ml 20 ml # Bowel Movements 0 0 0 Result Diagram: 09/19/16 0540 09/19/16 0540 Objective Remarks Remains on room air -Abd soft, NT/ ND Incsn: C/D/I, no erythema, slim in place Drain site dry Ext with mild edema Assessment and Plan Assessment and Plan Appears sensitive to narcotics, will decrease dose and co-administer anti- emetics; prefer not to use NSAIDS, ? adequacy of just acetaminophen, but may use IV form as adjunct; Concern on bladder outlet obstruction and impingement on renal vein outflow; will monitor urine output, may need to ultrasound for flow and perfusion; if no thrombosis clinically or by US, can start PO Tacrolimus; --also, will allow some reverse Trendelenburg after 6 PM Humphrey Florentino MD Sep 19, 2016 10:02
[2016-09-19] MEDS ORDERED: ACETAMINOPHEN 1000 MG/100 ML VIAL IV ONE (10:28)
[2016-09-19] MEDS ORDERED: SODIUM PHOSPHATE INJ 30 MMOL in SODIUM CHLOR 0.9% 250 ML INJ 250 ML IV ONE (11:00)
[2016-09-19] MEDS ORDERED: ACETAMINOPHEN 1000 MG/100 ML VIAL IV PRN (12:00)
--- NOTE | 2016-09-19 14:35 | HHI.NPPN ---
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 Additional Remarks Patient has anxiety, better today Review of Systems General Constitutional: Fatigue Objective Data Data 09/18/16 09/19/16 19:00 07:00 Intake Total 2400 ml 4345 ml Output Total 1105 ml 2515 ml Balance 1295 ml 1830 ml Intake Oral 240 ml 240 ml IV Total 2160 ml 4105 ml Output Urine Total 1060 ml 2495 ml Drainage Total 45 ml 20 ml # Bowel Movements 0 0 Vital Signs Date Time Temp Pulse Resp B/P Pulse Ox O2 Delivery O2 Flow Rate FiO2 09/19/16 11:00 97 Room Air 09/19/16 11:00 98.1 80 20 140/84 97 09/19/16 11:00 80 09/19/16 09:19 21 09/19/16 07:00 98.6 75 22 155/92 97 09/19/16 07:00 97 Room Air 09/19/16 07:00 75 09/19/16 04:00 98.9 87 12 138/88 96 09/19/16 03:00 96 Room Air 09/19/16 03:00 84 09/18/16 23:00 85 09/18/16 23:00 98.7 91 12 129/81 96 09/18/16 23:00 96 Room Air 09/18/16 22:05 97 21 09/18/16 19:30 98.7 89 20 129/86 96 09/18/16 19:00 110 09/18/16 19:00 96 Room Air 09/18/16 17:44 95 21 09/18/16 15:37 97 Nasal Cannula 09/18/16 15:17 98.6 92 20 140/79 96 Arterial Line 09/18/16 15:00 86 -: 09/19/16 0540 09/19/16 0540 Physical Exam General Appearance: No Acute Distress, Comfortable Eyes Eye Exam: Pupils Equal Throat Throat Exam: Oral Mucosa [place] & Moist Neck Neck Exam: Neck Supple Pulmonary Resp Exam: Clear Bilaterally, Breath Sounds Equal, No Distress Cardiology CV Exam: Tachycardia Gastrointestinal/Abdomen GI Exam: Soft, Bowel Sounds Present GI Remarks surgery rt lower quadrant Extremeties Extremities Exam: No Edema Neurologic Neuro Exam: Alert, Awake, Oriented Psychiatric Psych Exam: Appropriate Responses Assessment/Plan Assessment Summary: Hypertension, Transplant Kidney Status Electrolyte Assessment: Hypocalcemia Problem List: (1) Hypertension (2) CKD (chronic kidney disease) stage 4, GFR 15-29 ml/min (3) Hypocalcemia (4) Renal transplant, status post Plan low platelets received 2 doses Thymo, will give SoluMedrol 40 mg IV today Cr 1.2 start Prograf 4 mg q 12, Prednisone 20 mg daily as she has IgA with taper continue Cellcept give Labetalol for heart rate/BP issues K Phos for low po4 Gladys Gil MD Sep 19, 2016 14:35
[2016-09-19] MEDS ORDERED: methylPREDNISolone SOD SUCC 40 MG/1 ML VIAL IV ONE (14:45)
[2016-09-19] MEDS ORDERED: MYCOPHENOLATE MOFETIL IV SCH ×2 (18:00)
[2016-09-19] MEDS ORDERED: WATE IV SCH ×2 (18:00)
[2016-09-19] MEDS ORDERED: DEXTROSE 5% IV SCH ×2 (18:00)
[2016-09-19] MEDS: TACROLIMUS 1 MG CAP PO SCH (18:10)
--- NOTE | 2016-09-19 19:06 | RADRPT ---
EXAM DATE/TIME: 09/19/2016 16:01 [facility] COMPARISON: No previous studies available for comparison. INDICATIONS : Decreased urine output s/p renal transplant. MEDICAL HISTORY : Hypertension. Stage 4 renal disease. IGA nephropathy. SURGICAL HISTORY : Renal transplant. Renal biopsy. ENCOUNTER: Initial ACUITY: 1 day PAIN SCORE: 7/10 LOCATION: Right lower quadrant MEASUREMENTS: TRANSPLANT KIDNEY: 7.5 x 3.8 x 4.1 cm LOCATION: Right lower quadrant. ARCUATE ARTERIES RESISTIVE INDEX: Upper - 0.7 Mid - 0.7 Lower - 0.7 RA/EIA Ratio: 0.4 MAIN RENAL ARTERY VELOCITY: (cm/sec): 110 MAIN RENAL VEIN: Patent EXTERNAL ILIAC ARTERY VELOCITY (cm/sec): 277 * NORMAL DOPPLER FINDINGS Arcuate arteries - RI = 0.6 - 0.8 Renal artery = under 200 cm/sec Renal vein = May be monophasic with continuous flow or demonstrate some pulsatility with cardiac cycl e FINDINGS: 2 pediatric kidneys were transplanted into the right lower quadrant. Measurements of the more medial kidney are as above. Lateral kidney measures 7.1 x 4.1 x 3.9 cm with resistive indices of 0.6 in the upper, mid and lower pole. Main renal artery velocity is 88 cm/s. Main renal vein is patent. CONCLUSION: 1. Measurements of 2 transplanted kidneys in the right lower quadrant are as above. Resistive indices are between 0.6 and 0.7. Both renal arteries and renal veins are patent. Dagoberto Heller MD on September 19, 2016 at 19:02 Board Certified Radiologist. This report was verified electronically.
[2016-09-19] MEDS: LABETALOL HCL 200 MG TAB PO SCH (20:06)
[2016-09-19] MEDS: POTASSIUM PHOSPHATE MONOBASIC 500 MG TAB PO SCH (20:08)
[2016-09-19] MEDS: LORazepam 1 MG TAB PO PRN (21:09)
[2016-09-19] MEDS: LABETALOL HCL 100 MG/20 ML VIAL IV PUSH PRN ×3 (21:19→22:09)
[2016-09-19] MEDS: NIFEdipine 30 MG SUSTAINED RELEASE TAB PO SCH (23:00)
--- NOTE | 2016-09-19 23:36 | HHI.PR ---
Subjective Remarks CTSP re decrease in UO; Progressive loss in urine flow rate from 400, 275, 150, 50; BP and HR controlled, less anxiety; Objective Vital Signs Date Time Temp Pulse Resp B/P Pulse Ox O2 Delivery O2 Flow Rate FiO2 09/19/16 21:05 21 09/19/16 19:00 128 09/19/16 19:00 98.9 121 20 172/106 96 09/19/16 19:00 96 Room Air 09/19/16 16:36 98.7 100 20 158/98 96 09/19/16 15:00 100 09/19/16 15:00 96 Room Air 09/19/16 11:00 97 Room Air 09/19/16 11:00 98.1 80 20 140/84 97 09/19/16 11:00 80 09/19/16 09:19 21 09/19/16 07:00 98.6 75 22 155/92 97 09/19/16 07:00 97 Room Air 09/19/16 07:00 75 09/19/16 04:00 98.9 87 12 138/88 96 09/19/16 03:00 96 Room Air 09/19/16 03:00 84 I/O 09/18/16 09/18/16 09/18/16 09/19/16 09/19/16 09/19/16 07:00 15:00 23:00 07:00 15:00 23:00 Intake Total 1631 ml 2400 ml 4345 ml 3306 ml Output Total 451 ml 1105 ml 2515 ml 2005 ml Balance 1180 ml 1295 ml 1830 ml 1301 ml Intake Oral 600 ml 240 ml 240 ml 220 ml IV Total 1031 ml 2160 ml 4105 ml 3086 ml Output Urine Total 401 ml 1060 ml 2495 ml 1985 ml Drainage Total 50 ml 45 ml 20 ml 20 ml # Bowel Movements 0 0 0 0 Result Diagram: 09/19/16 0540 09/19/16 0540 Other Results Awake and answers all questions appropriately; back in bed, no c/o pain, urine clear straw colored, 45 cc in subsequent hour Objective Remarks Remains on room air -Abd soft, NT/ ND Incsn: C/D/I, no erythema, slim in place Drain site dry Ext with mild edema Assessment and Plan Assessment and Plan Acute decrease in UO, will return to bed, stat US ordered to r/o thrombosis, monitor UO hourly (currently back to baseline rate from [place] [facility]) Humphrey Kirk MD Sep 19, 2016 23:36
[2016-09-20] VITALS (8 sets, daily range): BP systolic 125–160; BP diastolic 84–104; PULSE 82–122; RESP 16–20; TEMP 98.1–98.6; O2SAT 96–97
[2016-09-20] MEDS: HYDROmorphone HCL PF 1 MG/ML VIAL IV PUSH PRN ×3 (02:00→21:55)
[2016-09-20] MEDS: PROCHLORPERAZINE INJ 10 MG/2 ML VIAL IVP PRN ×2 (02:00→22:57)
--- NOTE | 2016-09-20 02:15 | RADRPT ---
EXAM DATE/TIME: 09/20/2016 00:20 [facility] COMPARISON: US KIDNEY / TRANSPLANT, September 19, 2016, 16:01. INDICATIONS : Decreased in urine output. Compare to previous study. MEDICAL HISTORY : Hypertension. Renal disease. IGH neuropathy. SURGICAL HISTORY : Renal biopsy. Two pediatric renal transplants. ENCOUNTER: Subsequent ACUITY: 2 days PAIN SCORE: 4/10 LOCATION: Right lower quadrant MEASUREMENTS: TRANSPLANT KIDNEY: 7.9 x 3.6 x 3.9 cm (more lateral transplant) 7.8 x 3.7 x 4.1 cm(more medial transplant) LOCATION: Right lower quadrant. PREVIOUS ULTRASOUND: Sep 19 2016 PREVIOUS ARCUATE ARTERIES INDEX: Upper - LAT 0.6 / MED 0.7 Mid - LAT 0.6 / MED 0.7 Lower - LAT 0.6 / MED 0.7 ARCUATE ARTERIES RESISTIVE INDEX: Upper - LAT 0.6 / MED 0.7 Mid - LAT 0.6 / MED 0.6 Lower - LAT 0.7 / MED 0.6 RA/EIA Ratio: LAT 0.4 / MED 0.5 MAIN RENAL ARTERY VELOCITY: (cm/sec): LAT 126 & MED 138 MAIN RENAL VEIN: Patent EXTERNAL ILIAC ARTERY VELOCITY (cm/sec): 294 * NORMAL DOPPLER FINDINGS Arcuate arteries - RI = 0.6 - 0.8 Renal artery = under 200 cm/sec Renal vein = May be monophasic with continuous flow or demonstrate some pulsatility with cardiac cycl e FINDINGS: TRANSPLANT KIDNEY: Post transplant show normal cortical thickness and echotexture. No hydronephrosis, stone, or mass. No peritransplant fluid collection. URINARY BLADDER: Within normal limits given the degree of distension. There is a Slater balloon present with minimal di stention of the bladder. CONCLUSION: 1. An elevated velocity is seen involving the external iliac artery. This can be seen with areas of s tenosis. I am unsure if this patient had a CTA of the pelvis prior to the renal transplant. If the pa tient did not have this consider CTA of the abdomen and pelvis to evaluate the right external iliac a rtery for stenosis. 2. Transplant show no obstruction or Doppler abnormality. Santy Le Jr., MD on September 20, 2016 at 1:36 Board Certified Radiologist. This report was verified electronically.
[2016-09-20] MEDS: DEXT 5%-NACL 0.45% 1000 ML INJ 1,000 ML IV SCH (05:22)
[2016-09-20] MEDS: SODIUM CHLOR 0.45% 1000 ML INJ 1,000 ML IV SCH (05:22)
[2016-09-20 05:31] LABS: AUTOMATED NEUTROPHIL # 4.3 TH/MM3 (1.8-7.7); BASOPHIL % 0.1 % (0.0-2.0); EOSINOPHIL % 0.1 % (0.0-4.0); HEMATOCRIT 23.4 % (35.0-46.0); LYMPH % 3.4 % (9.0-44.0); LYMPHOCYTE # 0.2 TH/MM3 (1.0-4.8); MEAN CELL VOLUME 91.3 FL (80.0-100.0); MEAN CORPUSCULAR HEMOGLOBIN 30.8 PG (27.0-34.0); MEAN CORPUSCULAR HGB CONC 33.7 % (32.0-36.0); MONO % 7.2 % (0.0-8.0); NEUT % 89.2 % (16.0-70.0); PLATELET COUNT 78 TH/MM3 (150-450); RED BLOOD COUNT 2.57 MIL/MM3 (4.00-5.30); RED CELL DISTRIBUTION WIDTH 13.8 % (11.6-17.2); WHITE BLOOD COUNT 4.9 TH/MM3 (4.0-11.0)
[2016-09-20 05:35] LABS: HEMO FLAGS AUTO DIFF
[2016-09-20 05:54] LABS: BICARBONATE 22.6 MEQ/L (21.0-32.0); MAGNESIUM 2.2 MG/DL (1.5-2.5); POTASSIUM 3.9 MEQ/L (3.5-5.1)
[2016-09-20] MEDS: MYCOPHENOLATE MOFETIL 500 MG TAB PO SCH ×2 (06:00→17:46)
[2016-09-20] MEDS: INSULIN NovoLIN REGULAR SUPPLEMENTAL SCALE SQ SCH ×4 (06:01→21:59)
[2016-09-20] MEDS: TACROLIMUS 1 MG CAP PO SCH ×2 (06:01→17:47)
[2016-09-20 06:08] LABS: CALCIUM-PROTEIN CORRECTED 8.1 MG/DL (8.5-10.1)
[2016-09-20] MEDS: LACTATED RINGER'S 1000 ML IV SCH (07:15)
[2016-09-20] MEDS: CALCIUM CARBONATE 500 MG CHEWABLE TAB CHEW SCH ×3 (09:49→17:46)
[2016-09-20] MEDS: NYSTATIN SUSP 500,000 U/5 ML CUP SWISH-SWAL SCH ×3 (09:49→20:39)
[2016-09-20] MEDS: PANTOPRAZOLE SODIUM 40 MG VIAL IV PUSH SCH (09:49)
[2016-09-20] MEDS: POTASSIUM PHOSPHATE MONOBASIC 500 MG TAB PO SCH ×2 (09:49→20:36)
[2016-09-20] MEDS: LABETALOL HCL 200 MG TAB PO SCH ×2 (09:50→20:36)
[2016-09-20] MEDS: predniSONE 20 MG TAB PO SCH (09:50)
[2016-09-20] MEDS: DOCUSATE SODIUM 100 MG CAP PO SCH ×2 (09:50→20:36)
[2016-09-20] MEDS: NIFEdipine 30 MG SUSTAINED RELEASE TAB PO SCH (09:50)
[2016-09-20] MEDS ORDERED: SODIUM PHOSPHATE INJ 30 MMOL in SODIUM CHLOR 0.9% 250 ML INJ 250 ML IV ONE (10:00)
[2016-09-20 10:45] LABS: OVALOCYTES 1+ (NORMAL); PLATELET ESTIMATE SMEAR LOW (NORMAL); PLATELET MORPHOLOGY NORMAL (NORMAL); SCAN/DIFF AUTO DIFF CONFIRMED
--- NOTE | 2016-09-20 12:25 | HHI.PR ---
Subjective Remarks Pt much calmer this AM, slept well, no c/o nausea. Gentry liquids, not very hungry , cont to pass flatus. US results show maintained perfusion. Objective Last Impressions Renal Ultrasound 09/19/16 1325 Signed Impressions: Service Date/Time: Monday, September 19, 2016 16:01 - CONCLUSION: 1. Measurements of 2 transplanted kidneys in the right lower quadrant are as above. Resistive indices are between 0.6 and 0.7. Both renal arteries and renal veins are patent. Dagoberto Heller MD Chest X-Ray 09/17/16 0000 Signed Impressions: Service Date/Time: August 15:35 - CONCLUSION: Right internal jugular central line has its tip in the superior vena cava. No pneumothorax is noted. José Miguel Tapia MD Laboratory Tests Test 09/20/16 05:00 White Blood Count 4.9 Red Blood Count 2.57 Hemoglobin 7.9 Hematocrit 23.4 Mean Corpuscular Volume 91.3 Mean Corpuscular Hemoglobin 30.8 Mean Corpuscular Hemoglobin 33.7 Concent Red Cell Distribution Width 13.8 Platelet Count 78 Mean Platelet Volume 9.7 Neutrophils (%) (Auto) 89.2 Lymphocytes (%) (Auto) 3.4 Monocytes (%) (Auto) 7.2 Eosinophils (%) (Auto) 0.1 Basophils (%) (Auto) 0.1 Neutrophils # (Auto) 4.3 Lymphocytes # (Auto) 0.2 Monocytes # (Auto) 0.4 Eosinophils # (Auto) 0.0 Basophils # (Auto) 0.0 CBC Comment AUTO DIFF Differential Comment AUTO DIFF CONFIRMED Platelet Estimate LOW Platelet Morphology Comment NORMAL Ovalocytes 1+ Sodium Level 142 Potassium Level 3.9 Chloride Level 112 Carbon Dioxide Level 22.6 Anion Gap 7 Blood Urea Nitrogen 12 Creatinine 0.88 Estimat Glomerular Filtration 69 Rate Random Glucose 140 Calcium Level 7.0 Protein Corrected Calcium 8.1 Phosphorus Level 2.3 Magnesium Level 2.2 Total Protein 5.1 Vital Signs Date Time Temp Pulse Resp B/P Pulse Ox O2 Delivery O2 Flow Rate FiO2 09/20/16 07:00 91 09/20/16 07:00 98.6 91 18 140/86 97 09/20/16 07:00 97 Room Air 09/20/16 03:00 98.2 92 16 125/84 96 09/20/16 03:00 97 Room Air 09/20/16 03:00 90 09/19/16 23:00 96 Room Air 09/19/16 23:00 106 09/19/16 23:00 98.4 92 16 154/96 96 09/19/16 21:05 21 09/19/16 19:00 128 09/19/16 19:00 98.9 121 20 172/106 96 09/19/16 19:00 96 Room Air 09/19/16 16:36 98.7 100 20 158/98 96 09/19/16 15:00 100 09/19/16 15:00 96 Room Air I/O 09/19/16 09/19/16 09/19/16 09/20/16 09/20/16 09/20/16 07:00 15:00 23:00 07:00 15:00 23:00 Intake Total 4345 ml 3306 ml 3536 ml Output Total 2515 ml 2005 ml 1850 ml Balance 1830 ml 1301 ml 1686 ml Intake Oral 240 ml 220 ml 720 ml IV Total 4105 ml 3086 ml 2816 ml Output Urine Total 2495 ml 1985 ml 1820 ml Drainage Total 20 ml 20 ml 30 ml # Bowel Movements 0 0 0 Result Diagram: 09/20/16 0500 09/20/16 0500 Objective Remarks Remains on room air -Abd soft, NT/ ND Incsn: C/D/I, no erythema, slim in place Drain site dry Ext with edema Slater urine clear and colorless Medications and IVs Off Thymoglobulin, started on PO Tacrolimus Assessment and Plan Assessment and Plan Diuresis continues, Creatinine normal, will discontinue IV fluid replacement; continue maintenance IV until tolerate PO better; Allograft perfusion/output appears positional, will allow for ambulation but resume Reverse Trend when in bed. Will discuss with Urology on [employer] [facility]. Humphrey Kirk MD Sep 20, 2016 12:25
--- NOTE | 2016-09-20 13:19 | HHI.NPPN ---
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 Additional Remarks Patient has anxiety, better today Review of Systems General Constitutional: Fatigue Objective Data Data 09/19/16 09/20/16 19:00 07:00 Intake Total 3306 ml 3536 ml Output Total 2005 ml 1850 ml Balance 1301 ml 1686 ml Intake Oral 220 ml 720 ml IV Total 3086 ml 2816 ml Output Urine Total 1985 ml 1820 ml Drainage Total 20 ml 30 ml # Bowel Movements 0 0 Vital Signs Date Time Temp Pulse Resp B/P Pulse Ox O2 Delivery O2 Flow Rate FiO2 09/20/16 11:00 98.6 122 20 152/99 97 09/20/16 11:00 97 Room Air 09/20/16 11:00 122 09/20/16 07:00 91 09/20/16 07:00 98.6 91 18 140/86 97 09/20/16 07:00 97 Room Air 09/20/16 03:00 98.2 92 16 125/84 96 09/20/16 03:00 97 Room Air 09/20/16 03:00 90 09/19/16 23:00 96 Room Air 09/19/16 23:00 106 09/19/16 23:00 98.4 92 16 154/96 96 09/19/16 21:05 21 09/19/16 19:00 128 09/19/16 19:00 98.9 121 20 172/106 96 09/19/16 19:00 96 Room Air 09/19/16 16:36 98.7 100 20 158/98 96 09/19/16 15:00 100 09/19/16 15:00 96 Room Air -: 09/20/16 0500 09/20/16 0500 Physical Exam General Appearance: No Acute Distress, Comfortable Eyes Eye Exam: Pupils Equal Throat Throat Exam: Oral Mucosa [place] & Moist Neck Neck Exam: Neck Supple Pulmonary Resp Exam: Clear Bilaterally, Breath Sounds Equal, No Distress Cardiology CV Exam: Tachycardia Gastrointestinal/Abdomen GI Exam: Soft, Bowel Sounds Present GI Remarks surgery rt lower quadrant Extremeties Extremities Exam: No Edema Neurologic Neuro Exam: Alert, Awake, Oriented Psychiatric Psych Exam: Appropriate Responses Assessment/Plan Assessment Summary: Hypertension, Transplant Kidney Status Problem List: (1) Hypertension (2) CKD (chronic kidney disease) stage 4, GFR 15-29 ml/min (3) Hypocalcemia (4) Renal transplant, status post Plan low platelets still in 70's on oral Prednisone and Prograf monitor level Cr 0.88 Transplant US good flow iliac vessel high velocity unknown etiology start Prograf 4 mg q 12, Prednisone 20 mg daily as she has IgA with taper continue Cellcept given Labetalol for heart rate/BP issues added Procardia and clonidine K Phos for low po4 getting NaPO4 Gladys Gil MD Sep 20, 2016 13:19
[2016-09-20] MEDS: LABETALOL HCL 100 MG/20 ML VIAL IV PUSH PRN ×2 (16:03→20:36)
[2016-09-20] MEDS ORDERED: BISACODYL EC 5 MG TABEC PO PRN (16:30)
[2016-09-20] MEDS ORDERED: BISACODYL 10 MG SUPP RECTAL PRN (16:30)
[2016-09-20] MEDS: cloNIDine HCL 0.1 MG TAB PO PRN ×2 (16:47→22:23)
[2016-09-21] VITALS (11 sets, daily range): BP systolic 128–163; BP diastolic 88–109; PULSE 73–122; RESP 16–18; TEMP 98.1–99.1; O2SAT 96–100
[2016-09-21] MEDS: DEXT 5%-NACL 0.45% 1000 ML INJ 1,000 ML IV SCH (00:58)
[2016-09-21 05:51] LABS: AUTOMATED NEUTROPHIL # 3.8 TH/MM3 (1.8-7.7); BASOPHIL % 0.2 % (0.0-2.0); EOSINOPHIL % 0.3 % (0.0-4.0); HEMATOCRIT 22.9 % (35.0-46.0); LYMPH % 6.7 % (9.0-44.0); LYMPHOCYTE # 0.3 TH/MM3 (1.0-4.8); MEAN CELL VOLUME 89.7 FL (80.0-100.0); MEAN CORPUSCULAR HEMOGLOBIN 30.5 PG (27.0-34.0); MEAN CORPUSCULAR HGB CONC 34.1 % (32.0-36.0); NEUT % 82.8 % (16.0-70.0); PLATELET COUNT 89 TH/MM3 (150-450); RED BLOOD COUNT 2.56 MIL/MM3 (4.00-5.30); RED CELL DISTRIBUTION WIDTH 13.4 % (11.6-17.2); WHITE BLOOD COUNT 4.6 TH/MM3 (4.0-11.0)
[2016-09-21 05:52] LABS: BICARBONATE 24.5 MEQ/L (21.0-32.0); POTASSIUM 3.5 MEQ/L (3.5-5.1)
[2016-09-21 05:59] LABS: HEMO FLAGS AUTO DIFF
[2016-09-21] MEDS: TACROLIMUS 1 MG CAP PO SCH (06:07)
[2016-09-21] MEDS: MYCOPHENOLATE MOFETIL 500 MG TAB PO SCH ×2 (06:07→18:40)
[2016-09-21] MEDS: INSULIN NovoLIN REGULAR SUPPLEMENTAL SCALE SQ SCH (06:29)
[2016-09-21 07:33] LABS: KERATOCYTES OCC (NORMAL); PLATELET ESTIMATE SMEAR LOW (NORMAL); PLATELET MORPHOLOGY NORMAL (NORMAL); SCAN/DIFF AUTO DIFF CONFIRMED
[2016-09-21] MEDS ORDERED: HYDROmorphone HCL 2 MG TAB PO PRN (08:45)
--- NOTE | 2016-09-21 08:50 | HHI.PR ---
Subjective Remarks Sitting in reclined chair, slept well, no c/o nausea. Gentry liquids, (+) BM. Fluctuating but good UO overnight Objective Laboratory Tests Test 09/21/16 05:08 White Blood Count 4.6 Red Blood Count 2.56 Hemoglobin 7.8 Hematocrit 22.9 Mean Corpuscular Volume 89.7 Mean Corpuscular Hemoglobin 30.5 Mean Corpuscular Hemoglobin 34.1 Concent Red Cell Distribution Width 13.4 Platelet Count 89 Mean Platelet Volume 9.4 Neutrophils (%) (Auto) 82.8 Lymphocytes (%) (Auto) 6.7 Monocytes (%) (Auto) 10.0 Eosinophils (%) (Auto) 0.3 Basophils (%) (Auto) 0.2 Neutrophils # (Auto) 3.8 Lymphocytes # (Auto) 0.3 Monocytes # (Auto) 0.5 Eosinophils # (Auto) 0.0 Basophils # (Auto) 0.0 CBC Comment AUTO DIFF Differential Comment AUTO DIFF CONFIRMED Platelet Estimate LOW Platelet Morphology Comment NORMAL Keratocytes OCC Sodium Level 144 Potassium Level 3.5 Chloride Level 111 Carbon Dioxide Level 24.5 Anion Gap 9 Blood Urea Nitrogen 9 Creatinine 0.81 Estimat Glomerular Filtration 76 Rate Random Glucose 126 Calcium Level 8.2 Phosphorus Level 2.6 Magnesium Level 2.0 Vital Signs Date Time Temp Pulse Resp B/P Pulse Ox O2 Delivery O2 Flow Rate FiO2 09/21/16 03:00 98.1 73 16 128/92 96 09/21/16 03:00 90 09/21/16 03:00 98 Room Air 09/20/16 23:00 92 09/20/16 23:00 96 Room Air 09/20/16 23:00 98.1 90 20 138/89 96 09/20/16 19:12 98 09/20/16 19:00 98.2 104 16 160/104 96 09/20/16 19:00 97 Room Air 09/20/16 15:00 97 Room Air 09/20/16 15:00 82 09/20/16 15:00 98.4 82 20 155/95 97 09/20/16 11:00 98.6 122 20 152/99 97 09/20/16 11:00 97 Room Air 09/20/16 11:00 122 I/O 09/20/16 09/20/16 09/20/16 09/21/16 09/21/16 09/21/16 07:00 15:00 23:00 07:00 15:00 23:00 Intake Total 3536 ml 1688 ml 1836 ml Output Total 1850 ml 4030 ml 3190 ml Balance 1686 ml -2342 ml -1354 ml Intake Oral 720 ml 480 ml 840 ml IV Total 2816 ml 1208 ml 996 ml Output Urine Total 1820 ml 4000 ml 3150 ml Drainage Total 30 ml 30 ml 40 ml # Bowel Movements 0 0 2 Result Diagram: 09/21/1650709/21/16507 Objective Remarks Remains on room air -Abd soft, NT/ ND Incsn: C/D/I, no erythema, slim in place Drain site dry Ext with edema Slater urine clear and colorless Assessment and Plan Assessment and Plan Diuresis continues, Creatinine normal, will discontinue maintenance IV fluid , advance diet; Allograft perfusion/output appears less positional, ambulating well; will keep Slater in as per Urology. Humphrey Kirk MD Sep 21, 2016 08:49
[2016-09-21] MEDS: POTASSIUM PHOSPHATE MONOBASIC 500 MG TAB PO SCH ×2 (08:54→20:41)
[2016-09-21] MEDS: NYSTATIN SUSP 500,000 U/5 ML CUP SWISH-SWAL SCH ×3 (08:54→20:41)
[2016-09-21] MEDS: NIFEdipine 30 MG SUSTAINED RELEASE TAB PO SCH (08:55)
[2016-09-21] MEDS: LABETALOL HCL 200 MG TAB PO SCH ×2 (08:55→20:41)
[2016-09-21] MEDS: CALCIUM CARBONATE 500 MG CHEWABLE TAB CHEW SCH ×3 (08:55→18:40)
[2016-09-21] MEDS: SULFAMETHOXAZOLE-TRIMETHOPRIM DS 800-160 MG TAB PO SCH (08:55)
[2016-09-21] MEDS: DOCUSATE SODIUM 100 MG CAP PO SCH ×2 (08:55→20:41)
[2016-09-21] MEDS: predniSONE 20 MG TAB PO SCH (08:56)
[2016-09-21] MEDS: PANTOPRAZOLE SODIUM 40 MG VIAL IV PUSH SCH (08:56)
[2016-09-21] MEDS: HYDROmorphone HCL PF 1 MG/ML VIAL IV PUSH PRN (08:58)
[2016-09-21] MEDS: PROCHLORPERAZINE INJ 10 MG/2 ML VIAL IVP PRN (09:01)
[2016-09-21] MEDS ORDERED: PILL SPLITTER OTHER PRN (09:15)
[2016-09-21 10:40] LABS: STAT YES
[2016-09-21] MEDS ORDERED: POTASSIUM PHOSPHATE INJ 30 MMOL in SODIUM CHLOR 0.9% 250 ML INJ 250 ML IV ONE (11:00)
--- NOTE | 2016-09-21 14:53 | HHI.NPPN ---
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 Additional Remarks Patient has anxiety, better today Review of Systems General Constitutional: Fatigue Objective Data Data 09/20/16 09/21/16 19:00 07:00 Intake Total 1688 ml 1836 ml Output Total 4030 ml 3190 ml Balance -2342 ml -1354 ml Intake Oral 480 ml 840 ml IV Total 1208 ml 996 ml Output Urine Total 4000 ml 3150 ml Drainage Total 30 ml 40 ml # Bowel Movements 0 2 Vital Signs Date Time Temp Pulse Resp B/P Pulse Ox O2 Delivery O2 Flow Rate FiO2 09/21/16 11:00 98.2 113 16 134/88 98 09/21/16 11:00 82 09/21/16 11:00 98 Room Air 09/21/16 09:17 98 21 09/21/16 07:00 98 Room Air 09/21/16 07:00 98.2 113 16 153/104 98 09/21/16 07:00 113 09/21/16 03:00 98.1 73 16 128/92 96 09/21/16 03:00 90 09/21/16 03:00 98 Room Air 09/20/16 23:00 92 09/20/16 23:00 96 Room Air 09/20/16 23:00 98.1 90 20 138/89 96 09/20/16 19:12 98 09/20/16 19:00 98.2 104 16 160/104 96 09/20/16 19:00 97 Room Air 09/20/16 15:00 97 Room Air 09/20/16 15:00 82 09/20/16 15:00 98.4 82 20 155/95 97 -: 09/21/16 0508 09/21/16 0508 Physical Exam General Appearance: No Acute Distress, Comfortable Eyes Eye Exam: Pupils Equal Throat Throat Exam: Oral Mucosa [place] & Moist Neck Neck Exam: Neck Supple Pulmonary Resp Exam: Clear Bilaterally, Breath Sounds Equal, No Distress Cardiology CV Exam: Tachycardia Gastrointestinal/Abdomen GI Exam: Soft, Bowel Sounds Present GI Remarks surgery rt lower quadrant Extremeties Extremities Exam: No Edema Neurologic Neuro Exam: Alert, Awake, Oriented Psychiatric Psych Exam: Appropriate Responses Assessment/Plan Assessment Summary: Hypertension, Transplant Kidney Status Problem List: (1) Hypertension (2) CKD (chronic kidney disease) stage 4, GFR 15-29 ml/min (3) Hypocalcemia (4) Renal transplant, status post Plan low platelets improved on oral Prednisone and Prograf monitor level Cr 0.81 Transplant US good flow iliac vessel high velocity unknown etiology Prograf changed to 5 mg q 12, Prednisone 20 mg daily as she has IgA with taper continue Cellcept given Labetalol for heart rate/BP issues added Procardia and clonidine K Phos for low po4 Gladys Gil MD Sep 21, 2016 14:53
[2016-09-21] MEDS: TACROLIMUS 5 MG CAP PO SCH (18:40)
[2016-09-21] MEDS: HYDROmorphone HCL 2 MG TAB PO PRN (22:49)
[2016-09-22] VITALS (12 sets, daily range): BP systolic 154–156; BP diastolic 89–99; PULSE 91–124; RESP 16–18; TEMP 97.7–98.4; O2SAT 96–100
[2016-09-22] MEDS: HYDROmorphone HCL 2 MG TAB PO PRN ×2 (03:39→09:27)
[2016-09-22] MEDS: MYCOPHENOLATE MOFETIL 500 MG TAB PO SCH (06:01)
[2016-09-22] MEDS: TACROLIMUS 5 MG CAP PO SCH (06:01)
[2016-09-22 07:01] LABS: AUTOMATED NEUTROPHIL # 4.6 TH/MM3 (1.8-7.7); BASOPHIL % 0.4 % (0.0-2.0); BICARBONATE 27.7 MEQ/L (21.0-32.0); EOSINOPHIL # 0.1 TH/MM3 (0-0.4); EOSINOPHIL % 1.2 % (0.0-4.0); HEMATOCRIT 23.8 % (35.0-46.0); HEMO FLAGS DIFF FINAL; LYMPH % 7.5 % (9.0-44.0); LYMPHOCYTE # 0.4 TH/MM3 (1.0-4.8); MAGNESIUM 1.5 MG/DL (1.5-2.5); MEAN CORPUSCULAR HEMOGLOBIN 29.9 PG (27.0-34.0); MEAN CORPUSCULAR HGB CONC 33.6 % (32.0-36.0); MONO % 12.9 % (0.0-8.0); PLATELET COUNT 104 TH/MM3 (150-450); POTASSIUM 3.5 MEQ/L (3.5-5.1); RED BLOOD COUNT 2.67 MIL/MM3 (4.00-5.30); RED CELL DISTRIBUTION WIDTH 12.9 % (11.6-17.2); WHITE BLOOD COUNT 5.8 TH/MM3 (4.0-11.0)
--- NOTE | 2016-09-22 08:58 | HHI.PR ---
Subjective Remarks Sitting in reclined chair, slept well, no c/o nausea. Gentry reg diet, (+) BM. Excellent UO overnight, ambulating Objective Laboratory Tests Test 09/22/16 06:00 White Blood Count 5.8 Red Blood Count 2.67 Hemoglobin 8.0 Hematocrit 23.8 Mean Corpuscular Volume 89.0 Mean Corpuscular Hemoglobin 29.9 Mean Corpuscular Hemoglobin 33.6 Concent Red Cell Distribution Width 12.9 Platelet Count 104 Mean Platelet Volume 9.5 Neutrophils (%) (Auto) 78.0 Lymphocytes (%) (Auto) 7.5 Monocytes (%) (Auto) 12.9 Eosinophils (%) (Auto) 1.2 Basophils (%) (Auto) 0.4 Neutrophils # (Auto) 4.6 Lymphocytes # (Auto) 0.4 Monocytes # (Auto) 0.8 Eosinophils # (Auto) 0.1 Basophils # (Auto) 0.0 CBC Comment DIFF FINAL Differential Comment Sodium Level 142 Potassium Level 3.5 Chloride Level 108 Carbon Dioxide Level 27.7 Anion Gap 6 Blood Urea Nitrogen 12 Creatinine 1.08 Estimat Glomerular Filtration 55 Rate Random Glucose 95 Calcium Level 8.7 Phosphorus Level 2.6 Magnesium Level 1.5 Vital Signs Date Time Temp Pulse Resp B/P Pulse Ox O2 Delivery O2 Flow Rate FiO2 09/22/16 07:05 97.7 107 18 154/99 100 09/22/16 06:00 101 09/22/16 05:00 102 09/22/16 04:00 124 09/22/16 03:30 98.4 98 16 155/99 98 09/22/16 03:00 92 09/22/16 02:34 98 09/22/16 01:10 107 09/22/16 00:00 101 09/21/16 23:40 99.1 94 18 152/94 99 09/21/16 23:00 118 09/21/16 22:00 110 09/21/16 21:00 122 09/21/16 20:00 98.7 106 16 147/109 100 09/21/16 20:00 100 Room Air 09/21/16 20:00 98 09/21/16 15:39 96 09/21/16 15:39 Room Air 09/21/16 15:35 98.4 16 163/105 99 09/21/16 11:00 98.2 113 16 134/88 98 09/21/16 11:00 82 09/21/16 11:00 98 Room Air 09/21/16 09:17 98 21 I/O 09/21/16 09/21/16 09/21/16 09/22/16 09/22/16 09/22/16 07:00 15:00 23:00 07:00 15:00 23:00 Intake Total 1836 ml 1233 ml 960 ml Output Total 3190 ml 3115 ml 2285 ml Balance -1354 ml -1882 ml -1325 ml Intake Oral 840 ml 900 ml 960 ml IV Total 996 ml 333 ml Output Urine Total 3150 ml 3075 ml 2225 ml Stool Total 0 ml Drainage Total 40 ml 40 ml 60 ml # Bowel Movements 2 2 Result Diagram: 09/22/16 0600 09/22/16 0600 Objective Remarks Remains on room air -Abd soft, NT/ ND Incsn: C/D/I, no erythema, slim in place Drain site dry Ext with noticeably decreased edema Slater urine clear and light yellow Medications and IVs will administer IV Magnesium and increase PO phosphorus Assessment and Plan Assessment and Plan Diuresis continues, Creatinine increased, may have earli mild ACR, continue Slater at for total 7-8 days, ambulating well Humphrey Kirk MD Sep 22, 2016 08:58
[2016-09-22] MEDS: CALCIUM CARBONATE 500 MG CHEWABLE TAB CHEW SCH ×3 (09:00→12:40)
[2016-09-22] MEDS: NYSTATIN SUSP 500,000 U/5 ML CUP SWISH-SWAL SCH ×3 (09:00→12:40)
[2016-09-22] MEDS: LABETALOL HCL 200 MG TAB PO SCH (09:37)
[2016-09-22] MEDS: predniSONE 20 MG TAB PO SCH (09:38)
[2016-09-22] MEDS: DOCUSATE SODIUM 100 MG CAP PO SCH (09:38)
[2016-09-22] MEDS: NIFEdipine 30 MG SUSTAINED RELEASE TAB PO SCH (09:39)
[2016-09-22] MEDS: POTASSIUM PHOSPHATE MONOBASIC 500 MG TAB PO SCH ×2 (09:40→12:40)
[2016-09-22] MEDS: PANTOPRAZOLE SODIUM 40 MG VIAL IV PUSH SCH (09:43)
[2016-09-22] MEDS: MAGNESIUM SULFATE 1 GM PREMIX 100 ML IV SCH ×2 (10:00→10:46)
[2016-09-22] MEDS: ONDANSETRON HCL 4 MG/2 ML VIAL IV PRN (10:45)
--- NOTE | 2016-09-22 11:43 | MP ---
cc: MIGUEL KIRK MD, BENNETT P. 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 SURGEONS FOR THE CASE 1. Dk Kirk MD 2. Francisco Dos Santos MD PROCEDURE PERFORMED Pediatric donor kidney transplant. INDICATIONS FOR PROCEDURE The patient is a 46-year-old female who was preemptive for dialysis with end-stage renal disease from IgA nephropathy. She is here to receive a pediatric kidney allograft. OPERATIVE FINDINGS Normal external iliac artery and external iliac vein. PREOPERATIVE FINDINGS 1. Normal anatomic relation between the external iliac artery and external iliac vein. 2. Normal compliant external iliac artery. PROCEDURES The patient received prophylactic intravenous antibiotics followed by inhalational intravenous anesthetics prior to endotracheal intubation. She had previously received steroids and thymoglobulin for induction. She was positioned, prepped and draped in sterile fashion. Local anesthetic with Marcaine and lidocaine was infiltrated in the intended transplant site in the left lower quadrant. A right lower quadrant curvilinear incision was then performed with division of the external and internal oblique muscles and preservation of the rectus. Left inferior epigastrics were divided and once the peritoneum was visualized, it was mobilized medially so as to expose the retroperitoneum. A Bookwalter retractor was placed to for afford optimal exposure. The lymphatics and the tissue overlying the iliac vessels were carefully dissected and ligated using silk ties and surgical clips. A Satinsky clamp was placed on the external iliac vein and a longitudinal venotomy was performed, vena cava to external iliac vein anastomosis was performed using a continuous 6-0 Prolene suture. Similarly, two angled vascular clamps were used to vascularly isolate the external iliac artery. The distal aorta to external iliac artery anastomosis arteriotomy was performed using dual punches and 4-0 aortic punch. The aorta to external iliac artery arterial anastomosis was performed using continuous 6-0 Prolene suture. Prior to the completion of each anastomosis, the vessels were irrigated with heparinized saline. With completion of the arterial anastomosis, the vascular clamps were released with good perfusion in the allograft. Hemostasis was performed. The bladder was then filled with antibiotic solution and the mucosa was exposed for implantation. This was done at two separate sites. The ureters were then trimmed to size, spatulated and with the mucosa open, two ureteroneocystostomies were performed using a continuous 6-0 PDS suture. The anastomosis was performed on the superior lateral aspect of the bladder. The anastomosis was then placed under vascularized tissue using runner sutures to approximate the muscularis over the anastomosis. Hemostasis in the dissected area was performed. was performed by the allograft of both ureters prior to implantation of the ureter to it. A 19-Bulgarian Paulo drain was placed in the wound cavity. A separate stab wound was then used for placement of the 19-Bulgarian Paulo drain. This was followed by a two-layer closure using #1 PDS and the superficial layer and #1 Prolene in the deep layers. The skin was approximated using slim. The patient tolerated the well and she was transferred to the PACU in hemodynamically stable condition. MD GENIE Alexis/JADE /12:24 PM /11:18 AM
--- NOTE | 2016-09-22 11:43 | MP ---
cc: MIGUEL CORBETT MD DATE OF SURGERY 09/18/2016 PREOPERATIVE DIAGNOSIS End-stage renal disease POSTOPERATIVE DIAGNOSIS End-stage renal disease PROCEDURE PERFORMED Pediatric donor allograft back table preparation. PROCEDURE The allograft was removed from its preservative solution for examination and transferred to the dissecting basin. Care was used to ensure the allograft was fully submerged in the cold preservative solution. 4-0 Silk Stay sutures were placed on the corners of the vein as well as the aortic patch. The ureter was exposed by retracting perpendicular to the Stay Sutures. Excess fat was trimmed in the regions of the cortex of the kidney. Exposed vessels near the exposed lymphatics from the hilum were ligated with 3-0 Silk. The tissue pedicle to the inferior portion of the ureter was preserved and trimmed to size using sharp dissection and ligature. The hilar dissection proceeded with separation of the artery and the vein followed by dissecting off excess adventitial and lymphatic tissue surrounding the cava and the renal vein. This was done for exposure without undue skeletonization of the renal vein. Similar process was used to identify, dissect and expose the renal artery. Once fully both vascular structures were tested for leaks. Once the vessels were tested with no leaks confirmed, the graft was then returned to the preservative solution until the need for surgical anastomosis on the operating field. Because he is with pediatric en bloc kidney disease, vena cava plasty, as well as a cavaplasty of the renal veins was also performed. In addition also, a high or quick ligation was performed of the posterior . MD GENIE Alexis/DAISY /12:32 PM /11:34 AM
--- NOTE | 2016-09-22 12:40 | HHI.NPPN ---
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 Additional Remarks Patient has anxiety, still c/o jittery Review of Systems General Constitutional: Fatigue Objective Data Data 09/21/16 09/22/16 19:00 07:00 Intake Total 1233 ml 960 ml Output Total 3115 ml 2285 ml Balance -1882 ml -1325 ml Intake Oral 900 ml 960 ml IV Total 333 ml Output Urine Total 3075 ml 2225 ml Stool Total 0 ml Drainage Total 40 ml 60 ml # Bowel Movements 2 Vital Signs Date Time Temp Pulse Resp B/P Pulse Ox O2 Delivery O2 Flow Rate FiO2 09/22/16 11:29 98.0 91 18 156/89 99 09/22/16 09:44 96 21 09/22/16 07:05 97.7 107 18 154/99 100 09/22/16 07:00 104 09/22/16 06:00 101 09/22/16 05:00 102 09/22/16 04:00 124 09/22/16 03:30 98.4 98 16 155/99 98 09/22/16 03:00 92 09/22/16 02:34 98 09/22/16 01:10 107 09/22/16 00:00 101 09/21/16 23:40 99.1 94 18 152/94 99 09/21/16 23:00 118 09/21/16 22:00 110 09/21/16 21:00 122 09/21/16 20:00 98.7 106 16 147/109 100 09/21/16 20:00 100 Room Air 09/21/16 20:00 98 09/21/16 15:39 96 09/21/16 15:39 Room Air 09/21/16 15:35 98.4 16 163/105 99 -: 09/22/16 0600 09/22/16 0600 Physical Exam General Appearance: No Acute Distress, Comfortable Eyes Eye Exam: Pupils Equal Throat Throat Exam: Oral Mucosa [place] Moist Neck Neck Exam: Neck Supple Pulmonary Resp Exam: Clear Bilaterally, Breath Sounds Equal, No Distress Cardiology CV Exam: Tachycardia Gastrointestinal/Abdomen GI Exam: Soft, Bowel Sounds Present GI Remarks surgery rt lower quadrant Extremeties Extremities Exam: No Edema Neurologic Neuro Exam: Alert, Awake, Oriented Psychiatric Psych Exam: Appropriate Responses Assessment/Plan Assessment Summary: Hypertension, Transplant Kidney Status Problem List: (1) Hypertension (2) CKD (chronic kidney disease) stage 4, GFR 15-29 ml/min (3) Hypocalcemia (4) Renal transplant, status post Plan low platelets improved about 104 on oral Prednisone and Prograf monitor level Cr 1.08 Prograf c 5 mg q 12, Prednisone decrease to 10 mg daily as she has IgA with taper continue Cellcept given Labetalol for heart rate/BP issues added Procardia and clonidine K Phos for low po4 Gladys Gil MD Sep 22, 2016 12:40
[2016-09-22] MEDS ORDERED: K-PHTAB PO (12:54)
[2016-09-22] MEDS ORDERED: TACR5 PO (12:54)
[2016-09-22] MEDS ORDERED: NYST1000 SWISH-SWAL (12:54)
[2016-09-22] MEDS ORDERED: PRED10 PO (12:54)
[2016-09-22] MEDS ORDERED: DILA2TAB2 PO (12:54)
[2016-09-22] MEDS ORDERED: CALC500C16 CHEW (12:54)
[2016-09-22] MEDS ORDERED: PANT40P IV PUSH (12:54)
[2016-09-22] MEDS ORDERED: VALG450 PO (12:54)
[2016-09-22] MEDS ORDERED: NIFE30TA8 PO (12:54)
[2016-09-22] MEDS ORDERED: MYCO500 PO (12:54)
[2016-09-22] MEDS ORDERED: LABE200T2 PO (12:54)
[2016-09-22] MEDS ORDERED: DOCU1CAP39 PO (12:54)
--- NOTE | 2016-09-22 13:30 | HHI.DS ---
Discharge Summary Admission Date Sep 17, 2016 at 00:30 Discharge Date: Sep 22, 2016 Admitting Diagnosis IgA Nephropathy Procedures Donor Kidney Transplant Brief History 46 yo female with Stage 5 renal disease secondary to IgA nephropathy. her last GFR was 18; She is currently not on dialysis, and still makes near normal amounts of urine. She denies any recent F/C./N/V/D, no cough or exposure to illneses, denies possible , denies any wounds. CBC/BMP: 09/22/16 0600 09/22/16 0600 Significant Findings Laboratory Tests Test 09/20/16 09/21/16 09/22/16 05:00 05:08 06:00 Red Blood Count 2.57 MIL/MM3 2.56 MIL/MM3 2.67 MIL/MM3 (4.00-5.30) (4.00-5.30) (4.00-5.30) Hemoglobin 7.9 GM/DL 7.8 GM/DL 8.0 GM/DL (11.6-15.3) (11.6-15.3) (11.6-15.3) Hematocrit 23.4 % 22.9 % 23.8 % (35.0-46.0) (35.0-46.0) (35.0-46.0) Platelet Count 78 TH/MM3 89 TH/MM3 104 TH/MM3 (150-450) (150-450) (150-450) Neutrophils (%) (Auto) 89.2 % 82.8 % 78.0 % (16.0-70.0) (16.0-70.0) (16.0-70.0) Lymphocytes (%) (Auto) 3.4 % 6.7 % 7.5 % (9.0-44.0) (9.0-44.0) (9.0-44.0) Lymphocytes # (Auto) 0.2 TH/MM3 0.3 TH/MM3 0.4 TH/MM3 (1.0-4.8) (1.0-4.8) (1.0-4.8) Platelet Estimate LOW (NORMAL) LOW (NORMAL) Ovalocytes 1+ (NORMAL) Chloride Level 112 MEQ/L 111 MEQ/L 108 MEQ/L (98-107) (98-107) (98-107) Estimat Glomerular Filtration 69 ML/MIN (>89) 76 ML/MIN (>89) 55 ML/MIN (>89) Rate Random Glucose 140 MG/DL 126 MG/DL (74-106) (74-106) Calcium Level 7.0 MG/DL 8.2 MG/DL (8.5-10.1) (8.5-10.1) Protein Corrected Calcium 8.1 MG/DL (8.5-10.1) Phosphorus Level 2.3 MG/DL (2.5-4.9) Total Protein 5.1 GM/DL (6.4-8.2) Tacrolimus (Prograf) Level 2.7 NG/ML (5.0-20.0) Monocytes (%) (Auto) 10.0 % 12.9 % (0.0-8.0) (0.0-8.0) Keratocytes OCC (NORMAL) Creatinine 1.08 MG/DL (0.50-1.00) PE at Discharge Remains on room air -Abd soft, NT/ ND Incsn: C/D/I, no erythema, slim in place Drain site dry Ext with noticeably decreased edema Slater urine clear and light yellow Hospital Course Underwent DD KTx on 09/17/16 and received pediatric en-bloc kidneys; had post op N/V later found to be sensitivity to narcotics; had 2 noted incidences of acute decrease in urine output, one attributed to a clogged Slater, both incidences favorably resolved; able to progress to tolerate solid diet, recline comfortably in a chair; will go home with the Slater in place, RTC in 2 days Pt Condition on Discharge: Good Discharge Disposition: Discharge Home Discharge Instructions DIET: Follow Instructions for: As Tolerated, No Restrictions Activities you can perform: Shower Only-No Bath Activities to avoid: Lifting/Bending, Strenuous Activity, Driving Humphrey Kirk MD Sep 22, 2016 13:30
--- NOTE | 2016-09-22 15:03 | PHATRASOAP ---
Date/Time: 09/22/16 1501 Pharmacist daily assessment of kidney transplant patient: S: Post op renal transplant day #5 O: Ht: 5 ft 6 in Wt: 78kg Allergies: Zithromax SCR = 1.08 A: Vitals: BP = 150s/90s Electrolytes: Na= 142, K=3.5, Ca= 8.7, Phosphorus=2.6, Mg=1.5 Albumin = 3.8 WBC=5.8 H/H=8/23.8 BG=95 SWF=9183 mL BM = 2 Tacrolimus level 09/22=5.7 Hospital Medications: Thymoglobulin 2.9 mg/kg as 2 divided doses since admission) Cellcept 1000 mg po bid Prograf 5 mg po BID Valganciclovir 900 mg po daily Calcium 500 mg po TID Kphos neutral 500mg PO BID Labetalol 200mg PO BID Nifedipine SR 30mg PO daily Clonidine 0.1mg PO Q6h PRN Labetalol 5mg IV Q5M PRN Dilaudid 0.25-1mg IV/PO Q4H PRN pain Home Medications: Verapamil 240mg PO daily Olmesartan 40mg PO daily -Patient had received 2 doses of Thymoglobulin with total dose to date 2.9 mg/kg reflected with appropriate drop in WBC. -Patient phosphorus level is low, might consider increasing Kphos neutral to TID to mainatain steady phosphorus level. -BP well controlled with scheduled and PRN medications. - Pain is well controlled with dilaudid P: -Might consider increasing Kphos neutral 500mg to TID -Continue BP meds -Continue Tacrolimus / Valganciclovir / Bactrim / Prednisone/Cellcept -Continue dilaudid. Pharmacist: Dalton ZhengD Signature on file Consulting Physician:
--- NOTE | 2016-09-22 15:06 | PHATRANEDU ---
Date/Time: 09/22/16 5095 Pharmacist Patient education: Pharmacist Patient Education: Education on medication compliance: Counseled patient on the crucial importance of compliance with all her medication especially her anti-rejection medication. Educated patient on the different frequency of his different medication and how to take his medication in regards to meals to minimize side effects and maximize benefits. Education on medication side effects: Counseled on various side effects of her anti-rejection and anti-infective medications: Educated patient on the tendency of anti-rejection medications to increase his blood pressure educated patient to continue to monitor blood pressure and notify physician if she noticed increase in blood pressure above her normal value. Educated patients on side effects associated with Tacrolimus, Mycophenolate and Prednisone. Moreover educated patient of side effects of Bactrim, Valganciclovir and Nystatin. Educated patient on the action plan needed when any side effects occurs. Education on signs and symptoms of rejection/ Infection: Educated patient on different signs and symptoms of rejection that include: -Decreased urine output. -A temperature above 100* F (37.8* C). -Tenderness in the area of your new kidney. -Bloody or foul smelling urine. -Flu-like feelings. -Weight gain (more than 5 pounds in two days). Educated patient on signs and symptoms of infection that include: -A fever above 100* F (37.8* C). -Drainage or bad odor of drainage from your surgical scar. -Burning when you pass your urine. -A cold or cough that will not go away. -Flu-like feelings. Action plan needed in situation of rejection Infection or medications side effects: Educated patient on need to contact his physician if he noticed any of the above symptoms. Educated patient to follow with his physician on time for labs and follow ups. Pharmacist: Dalton Blandon PharmD Signature on file
[2016-09-23] MEDS ORDERED: predniSONE 10 MG TAB PO SCH (09:00)
== END 2016-09-22 14:45 | disposition home or self-care (01) | DRG 652 ==
LOC: HCVR 00:30 → HCIN 09-21 18:55
PROVIDERS: ADMIT Surgery; ATTEND Surgery
PROC: [UNRECOGNIZED PROCEDURE] (principal; 2016-09-17 06:41)
PROC: 0TY00Z0 Transplantation of Right Kidney, Allogeneic, Open Approach (ICD-10-PCS; 2016-09-17 06:41)
DX: I12.0 Hypertensive chronic kidney disease with stage 5 chronic kidney disease or end stage renal disease (principal); D69.6 Thrombocytopenia, unspecified; N18.6 End stage renal disease; N02.8 Recurrent and persistent hematuria with other morphologic changes; R11.2 Nausea with vomiting, unspecified; T40.605A Adverse effect of unspecified narcotics, initial encounter; T83.091A Other mechanical complication of indwelling urethral catheter, initial encounter; R25.2 Cramp and spasm; E83.51 Hypocalcemia; F41.9 Anxiety disorder, unspecified; Y73.2 Prosthetic and other implants, materials and accessory gastroenterology and urology devices associated with adverse incidents; Z88.1 Allergy status to other antibiotic agents
CPT/HCPCS: 36430; 71010; 71020; 76776; 80048; 80053; 80197; 82805; 83735; 84100; 84155; 84702; 85025; 85610; 85730; 86850; 86900; 86901; 86920; 93005; 94150; C9113; J0131; J0690; J0780; J1100; J1170; J1200; J1644; J2250; J2270; J2370; J2405; J2710; J2920; J2930; J3010; J3475; J7040; J7050; J7507; J7511; J7512; J7517; P9016

== ENCOUNTER 2016-10-05 12:54 | Inpatient (IN) | payer BC ==
[~2016-10-05 12:54] MED LIST changes: -BENI40TA30 PO; -CALA240T PO; +CALC500C16 CHEW; +DILA2TAB2 PO; +DOCU1CAP39 PO; +K-PHTAB PO; +LABE200T2 PO; +MYCO500 PO; +NIFE30TA8 PO; +NYST1000 SWISH-SWAL; +PANT40P IV PUSH; +PRED10 PO; +TACR5 PO; +VALG450 PO
[2016-10-05] MEDS ORDERED: DEXTROSE 50% IN WATER 50 ML VIAL(D50) IV PUSH PRN (13:30)
[2016-10-05] MEDS ORDERED: NALOXONE HCL 0.4 MG/ML AMP IV PRN (13:30)
[2016-10-05] MEDS ORDERED: GLUCAGON 1 MG/ML VIAL OTHER PRN (13:30)
[2016-10-05] MEDS: DOCUSATE SODIUM 100 MG CAP PO SCH (13:30)
[2016-10-05] MEDS ORDERED: SODIUM CHLORIDE 0.9% FLUSH 10 ML FLUSH IV FLUSH PRN (13:30)
--- NOTE | 2016-10-05 13:47 | HHI.HP ---
[facility] Service Family Medicine Primary Care Physician Nuzhat Ratliff, DO Admission Diagnosis Fever status post kidney transplant to rule out rejection Diagnoses: (1) Rejection of transplanted organ Diagnosis: Principal (2) Renal transplant, status post Diagnosis: Secondary (3) Hypertension Diagnosis: Secondary Chief Complaint: Fever since Wednesday International Travel<30 Days: No Contact w/Intl Traveler<30days: No History of Present Illness Patient is a 46-year-old female with history of en block pediatric kidney transplant on 09/18/16, she had hypertensive episode posttransplant and tachycardia however a transplant worked well and she was discharged with stable transplant function, induction was with Thymoglobulin and she was maintained on prednisone, Prograf and CellCept, she developed a low-grade fever on Wednesday and developed nausea unable to eat properly and she continued to have these symptoms and a fever of 101.6, she has described low back pain, she stated her urine output is maintained denies dysuria or burning. She did not reported to have fevers until today, she was given promethazine for nausea as her called to report nausea and decreased appetite. Review of Systems Constitutional: COMPLAINS OF: Fatigue, Fever Gastrointestinal: COMPLAINS OF: Nausea Musculoskeletal: COMPLAINS OF: Back pain Past Family Social History Past Medical History Kidney transplant Hypertension IgA nephropathy Past Surgical History Kidney biopsy Reported Medications Reported Meds & Active Scripts Active Prednisone 2.5 Mg Tab 2.5 Mg PO DAILY Nystatin Liq 100,000 unit/ml Susp 5 Ml SWISH-SWAL TID@09,13,21 30 Days Protonix Inj (Pantoprazole Sodium) 40 Mg Inj 40 Mg IV PUSH DAILY K-Phos (Potassium Phosphate Monobasic) 500 Mg Tab 500 Mg PO TID Prograf (Tacrolimus) 5 Mg Cap 5 Mg PO DAILY@,18 30 Days Valcyte (Valganciclovir) 450 Mg Tab 900 Mg PO DAILY 30 Days Cellcept (Mycophenolate Mofetil) 500 Mg Tab 1,000 Mg PO BID@,18 Labetalol (Labetalol HCl) 200 Mg Tab 200 Mg PO QPM HR 30 Days Dilaudid (Hydromorphone HCl) 2 Mg Tab 0.5 Mg PO Q4H PRN Dok (Docusate Sodium) 100 Mg Cap 100 Mg PO BID Calcium Carbonate (Antacid) 500 Mg Chew 500 Mg CHEW TID 30 Days Allergies: Coded Allergies: Zithromax (Verified Adverse Reaction, Mild, 02/18/16) Active Ordered Medications Current Medications Medications (Trade) Dose Ordered Sig/Karol Route Start Time Stop Time Status Last Admin (06/29 NS 1000 ml Inj) 1,000 ml @ 75 mls/hr [id number] IV 10/05/16 13:19 (NS Flush) 2 ml UNSCH PRN IV FLUSH 10/05/16 13:30 (NS Flush) 2 ml BID IV FLUSH 10/05/16 21:00 (Tylenol) 650 mg Q4H PRN PO 10/05/16 13:30 (Colace) 100 mg Q12HR PO 10/05/16 13:30 (Ambien) 5 mg HS PRN PO 10/05/16 13:30 (Heparin Inj) 5,000 units Q12H SQ 10/05/16 14:00 (Narcan Inj) 0.4 mg UNSCH PRN IV 10/05/16 13:30 (SoluMEDROL INJ) 125 mg BID IV PUSH 10/05/16 21:00 UNV (Prograf) 5 mg DAILY@06,18 PO 10/05/16 18:00 UNV (Protonix) 40 mg DAILY PO 10/06/16 09:00 UNV (Valcyte) 450 mg DAILY PO 10/06/16 09:00 UNV (Bactrim Ds 800-160 Mg) 1 tab DAILY PO 10/05/16 13:30 UNV (Mycostatin Liq) 5 ml QID SWISH-SWAL 10/05/16 18:00 UNV (Trandate) 200 mg HS PO 10/05/16 21:00 UNV (D50w (Vial) Inj) 25 ml UNSCH PRN IV PUSH 10/05/16 13:30 UNV (Glucagon Inj) 1 mg UNSCH PRN OTHER 10/05/16 13:30 UNV Family History Noncontributory Social History Denies smoking or alcohol use Physical Exam Vital Signs Vital signs she has a heart rate 95, BP 120/75 fever of 101.6, Repeat 98.3 Physical Exam GENERAL: Well-nourished, well-developed patient. SKIN: Warm and dry. HEAD: Normocephalic. EYES: No scleral icterus. No injection or drainage. NECK: Supple, trachea midline. No JVD or lymphadenopathy. CARDIOVASCULAR: Tachycardia RESPIRATORY: Breath sounds equal bilaterally. No accessory muscle use. GASTROINTESTINAL: Abdomen soft, non-tender, nondistended. Daniel and right lower abdominal EXTREMITIES: No cyanosis, or edema. NEUROLOGICAL: Awake, alert, and oriented x 3. Non-focal. Assessment and Plan Problem List: (1) Rejection of transplanted organ Status: Acute Plan: Patient is exhibiting signs of rejection discussed with Dr. Kirk, we'll obtain a transplant kidney ultrasound for extra dose of Solu-Medrol, possible biopsy is needed to confirm the diagnosis will check UA and blood cultures to rule out any underlying infectious process and obtain a CMV antigen assay (2) Hypertension Status: Acute Plan: Continue to monitor Physician Certification 2 Midnight Certification Type: Admission for Inpatient Services Order for Inpatient Services The services are ordered in accordance with Medicare regulations or non- Medicare payer requirements, as applicable. In the case of services not specified as inpatient-only, they are appropriately provided as inpatient services in accordance with the 2-midnight benchmark. Estimated LOS (days): 5 5 days is the estimated time the patient will need to remain in the hospital, assuming treatment plan goals are met and no additional complications. Post-Hospital Plan: Home Problem Qualifiers (1) Hypertension: Qualified Code: I10 - Essential hypertension Gladys Gil MD Oct 05, 2016 13:46
[2016-10-05 13:57] LABS: BLOOD, URINE NEG (NEG); COMMENT (UR) CULT NOT INDICATED; CULTURE IF INDICATED CULT NOT INDICATED; GLUCOSE,URINE NEG (NEG); KETONE, URINE NEG (NEG); MUCUS URINE FEW /lpf (OCC); NITRITE,URINE NEG (NEG); PH, URINE 5.5 (5.0-8.5); SQUAMOUS EPITHELIAL CELL URINE 1 /hpf (0-5); URINE COLOR YELLOW (YELLW/STRAW)
[2016-10-05] MEDS ORDERED: HEPARIN SODIUM - SQ 10,000 UNITS/ML VIAL SQ SCH (14:00)
[2016-10-05] MEDS: SULFAMETHOXAZOLE-TRIMETHOPRIM DS 800-160 MG TAB PO SCH (14:01)
[2016-10-05 14:37] VITALS: BP 120/75; PULSE 95; RESP 16; TEMP 98.3; O2SAT 100
--- NOTE | 2016-10-05 14:39 | RADRPT ---
EXAM DATE/TIME: 10/05/2016 13:48 [facility] COMPARISON: CHEST SINGLE AP, September 17, 2016, 15:35. INDICATIONS : Short of breath MEDICAL HISTORY : None. SURGICAL HISTORY : Kidney transplant ENCOUNTER: Initial ACUITY: 2 days PAIN SCORE: 0/10 LOCATION: Bilateral chest FINDINGS: Portable AP view of the chest demonstrates a normal-sized cardiac silhouette. No effusion, consolidat ion, or pneumothorax is visualized. The bones and soft tissues demonstrate no acute abnormality. CONCLUSION: No acute cardiopulmonary abnormality is identified. Arturo Kim MD on October 05, 2016 at 14:37 Board Certified Radiologist. This report was verified electronically.
[2016-10-05 15:00] VITALS: PULSE 98
[2016-10-05 16:00] VITALS: PULSE 100
[2016-10-05] MEDS ORDERED: POTASSIUM PHOSPHATE INJ 15 MMOL in SODIUM CHLORIDE 0.9% INJ 150 ML IV ONE (16:00)
[2016-10-05 17:00] VITALS: PULSE 110
[2016-10-05] MEDS: INSULIN ASPART SUPPLEMENTAL SCALE SQ SCH ×2 (17:03→20:24)
[2016-10-05] MEDS: SODIUM CHLOR 0.45% 1000 ML INJ 1,000 ML IV SCH (17:06)
[2016-10-05 17:55] LABS: APTT (PATIENT) 31.5 SEC (24.3-30.1); PROTHROMBIN TIME - PATIENT 10.9 SEC (9.8-11.6)
--- NOTE | 2016-10-05 17:56 | RADRPT ---
EXAM DATE/TIME: 10/05/2016 14:16 [facility] COMPARISON: US KIDNEY / TRANSPLANT, September 20, 2016, 0:20. INDICATIONS : Increased BUN and Creatinine. MEDICAL HISTORY : Hypertension. Stage 4 renal disease. IGA nephropathy. SURGICAL HISTORY : Renal transplant. Renal biopsy. ENCOUNTER: Subsequent ACUITY: 1 day PAIN SCORE: 5/10 LOCATION: Right lower quadrant MEASUREMENTS: TRANSPLANT KIDNEY: 7.3 x 3.7 x 4.4 cm LOCATION: Right lower quadrant. PREVIOUS ULTRASOUND: Sep 20 2016 PREVIOUS ARCUATE ARTERIES INDEX: Upper - 0.6 Mid - 0.6 Lower - 0.7 ARCUATE ARTERIES RESISTIVE INDEX: Upper - 0.6 Mid - 0.7 Lower - 0.6 RA/EIA Ratio: 0.8 MAIN RENAL ARTERY VELOCITY: (cm/sec): 138 MAIN RENAL VEIN: Patent EXTERNAL ILIAC ARTERY VELOCITY (cm/sec): 169 * NORMAL DOPPLER FINDINGS Arcuate arteries - RI = 0.6 - 0.8 Renal artery = under 200 cm/sec Renal vein = May be monophasic with continuous flow or demonstrate some pulsatility with cardiac cycl e FINDINGS: TRANSPLANT KIDNEY: Normal cortical thickness and echotexture. No hydronephrosis, stone, or mass. No peritransplant flu id collection. URINARY BLADDER: Within normal limits given the degree of distension. CONCLUSION: There is no hydronephrosis. Stable resistive indices. Very minimal dilatation of the collecting sys tem when compared to 09/20/16. Ricardo Cosme MD FACR on October 05, 2016 at 17:51 Board Certified Radiologist. This report was verified electronically.
[2016-10-05] MEDS: NYSTATIN SUSP 500,000 U/5 ML CUP SWISH-SWAL SCH ×2 (18:15→20:22)
[2016-10-05] MEDS: ONDANSETRON HCL 4 MG/2 ML VIAL IV PUSH PRN (18:15)
[2016-10-05] MEDS: MYCOPHENOLATE SODIUM 360 MG DELAYED RELEASE TAB PO SCH (18:15)
[2016-10-05] MEDS: TACROLIMUS 5 MG CAP PO SCH (18:20)
[2016-10-05 20:00] VITALS: BP 131/87; PULSE 113; RESP 16; TEMP 99.3; O2SAT 98
[2016-10-05] MEDS: POTASSIUM PHOSPHATE MONOBASIC 500 MG TAB PO SCH (20:23)
[2016-10-05] MEDS: LABETALOL HCL 200 MG TAB PO SCH (20:23)
[2016-10-05] MEDS: ACETAMINOPHEN 325 MG TAB PO PRN (20:23)
[2016-10-05] MEDS: methylPREDNISolone SOD SUCC 125 MG/2 ML VIAL IV PUSH SCH (20:23)
[2016-10-05] MEDS: SODIUM CHLORIDE 0.9% FLUSH 10 ML FLUSH IV FLUSH SCH (20:24)
[2016-10-05] MEDS: ZOLPIDEM TARTRATE 5 MG TAB PO PRN (21:50)
[2016-10-06] VITALS (11 sets, daily range): BP systolic 109–127; BP diastolic 62–82; PULSE 82–116; RESP 16–18; TEMP 97.4–98.8; O2SAT 97–100
[2016-10-06] MEDS: MYCOPHENOLATE SODIUM 360 MG DELAYED RELEASE TAB PO SCH ×2 (05:45→18:06)
[2016-10-06] MEDS: SODIUM CHLOR 0.45% 1000 ML INJ 1,000 ML IV SCH ×4 (05:45→20:44)
[2016-10-06] MEDS: TACROLIMUS 5 MG CAP PO SCH ×2 (05:45→18:06)
[2016-10-06] MEDS: ONDANSETRON HCL 4 MG/2 ML VIAL IV PUSH PRN ×2 (05:55→18:05)
[2016-10-06] MEDS: INSULIN ASPART SUPPLEMENTAL SCALE SQ SCH ×4 (06:27→20:45)
[2016-10-06 06:57] LABS: AUTOMATED NEUTROPHIL # 6.8 TH/MM3 (1.8-7.7); BASOPHIL % 0.4 % (0.0-2.0); HEMATOCRIT 27.1 % (35.0-46.0); HEMO FLAGS DIFF FINAL; LYMPH % 2.7 % (9.0-44.0); LYMPHOCYTE # 0.2 TH/MM3 (1.0-4.8); MEAN CELL VOLUME 90.5 FL (80.0-100.0); MEAN CORPUSCULAR HGB CONC 34.2 % (32.0-36.0); MONO % 1.3 % (0.0-8.0); NEUT % 95.6 % (16.0-70.0); PLATELET COUNT 303 TH/MM3 (150-450); RED BLOOD COUNT 2.99 MIL/MM3 (4.00-5.30); RED CELL DISTRIBUTION WIDTH 14.3 % (11.6-17.2); WHITE BLOOD COUNT 7.1 TH/MM3 (4.0-11.0)
[2016-10-06 07:23] LABS: ALKALINE PHOSPHATASE 102 U/L (45-117); ALT (GPT) 78 U/L (10-53); ANION GAP 11 MEQ/L (5-15); AST (GOT) 29 U/L (15-37); BICARBONATE 21.7 MEQ/L (21.0-32.0); BLOOD UREA NITROGEN 22 MG/DL (7-18); CHLORIDE 106 MEQ/L (98-107); GLOMERULAR FILTRATION RATE 37 ML/MIN (>89); MAGNESIUM 1.8 MG/DL (1.5-2.5); SODIUM (NA) 139 MEQ/L (136-145); TOTAL BILIRUBIN ADULT 0.2 MG/DL (0.2-1.0)
--- NOTE | 2016-10-06 08:26 | HHI.PR ---
Subjective Remarks Pt. well known to service. Admitted for weekend fevers and N/V; Overnight, states best sleep since two weeks (received Ambien); no c/o N/V, only low grade temps Objective Vital Signs Date Time Temp Pulse Resp B/P Pulse Ox O2 Delivery O2 Flow Rate FiO2 10/06/16 07:00 85 10/06/16 06:00 104 10/06/16 04:00 82 10/06/16 04:00 97.9 94 16 127/82 100 10/06/16 02:00 116 10/06/16 00:00 88 10/06/16 00:00 98.8 88 16 122/81 97 10/05/16 20:00 113 10/05/16 20:00 99.3 113 16 131/87 98 10/05/16 17:00 110 10/05/16 16:00 100 10/05/16 15:00 98 10/05/16 14:50 100 Room Air 10/05/16 14:37 98.3 95 16 120/75 100 I/O 10/05/16 10/05/16 10/05/16 10/06/16 10/06/16 10/06/16 07:00 15:00 23:00 07:00 15:00 23:00 Intake Total 1096 ml Balance 1096 ml Intake Oral 0 ml IV Total 1096 ml # Voids 3 # Bowel Movements 0 Result Diagram: 10/06/16 0450 10/06/16 0450 Imaging Last 24 hours Impressions Chest X-Ray 10/05/16 1319 Signed Impressions: Service Date/Time: Wednesday, October 05, 2016 13:48 - CONCLUSION: No acute cardiopulmonary abnormality is identified. Arturo Kim MD [facility] US - no hydronephrosis, good perfusion, no fld collection Other Results Laboratory Tests Test 10/05/16 10/05/16 10/06/16 13:39 17:01 04:50 Urine Color YELLOW Urine Turbidity CLEAR Urine pH 5.5 Urine Specific [place] 1.006 Urine Protein NEG Urine Glucose (UA) NEG Urine Ketones NEG Urine Occult Blood NEG Urine Nitrite NEG Urine Bilirubin NEG Urine Urobilinogen LESS THAN 2.0 Urine Leukocyte Esterase NEG Urine RBC LESS THAN 1 Urine WBC 2 Urine Squamous Epithelial 1 Cells Urine Mucus FEW Microscopic Urinalysis Comment CULT NOT INDICATED Prothrombin Time 10.9 Prothromb Time International 1.0 Ratio Activated Partial 31.5 Thromboplast Time White Blood Count 7.1 Red Blood Count 2.99 Hemoglobin 9.3 Hematocrit 27.1 Mean Corpuscular Volume 90.5 Mean Corpuscular Hemoglobin 31.0 Mean Corpuscular Hemoglobin 34.2 Concent Red Cell Distribution Width 14.3 Platelet Count 303 Mean Platelet Volume 8.5 Neutrophils (%) (Auto) 95.6 Lymphocytes (%) (Auto) 2.7 Monocytes (%) (Auto) 1.3 Eosinophils (%) (Auto) 0.0 Basophils (%) (Auto) 0.4 Neutrophils # (Auto) 6.8 Lymphocytes # (Auto) 0.2 Monocytes # (Auto) 0.1 Eosinophils # (Auto) 0.0 Basophils # (Auto) 0.0 CBC Comment DIFF FINAL Differential Comment Sodium Level 139 Potassium Level 5.0 Chloride Level 106 Carbon Dioxide Level 21.7 Anion Gap 11 Blood Urea Nitrogen 22 Creatinine 1.51 Estimat Glomerular Filtration 37 Rate Random Glucose 190 Calcium Level 8.5 Phosphorus Level 3.2 Magnesium Level 1.8 Total Bilirubin 0.2 Aspartate Amino Transf 29 (AST/SGOT) Alanine Aminotransferase 78 (ALT/SGPT) Alkaline Phosphatase 102 Total Protein 7.1 Albumin 2.9 Date/Time Procedure Status Source Growth 10/05/16 17:05 Aerobic Blood Culture Received Blood Peripheral Pending 10/05/16 17:05 Anaerobic Blood Culture Received Blood Peripheral Pending Objective Remarks Abd-soft, NT, ND; slim intact, min staple line erythema; non-fluctuant Assessment and Plan Assessment and Plan Cultures and serologies pending, await FK levels, most likely for biopsy today. Humphrey Kirk MD Oct 06, 2016 08:26
[2016-10-06] MEDS: SULFAMETHOXAZOLE-TRIMETHOPRIM DS 800-160 MG TAB PO SCH (08:56)
[2016-10-06] MEDS: POTASSIUM PHOSPHATE MONOBASIC 500 MG TAB PO SCH ×2 (08:56→20:45)
[2016-10-06] MEDS: methylPREDNISolone SOD SUCC 125 MG/2 ML VIAL IV PUSH SCH ×2 (08:56→20:45)
[2016-10-06] MEDS: PANTOPRAZOLE SOD 40 MG DELAYED RELEASE TAB PO SCH (08:56)
[2016-10-06] MEDS: NYSTATIN SUSP 500,000 U/5 ML CUP SWISH-SWAL SCH ×4 (08:57→20:45)
[2016-10-06] MEDS: SODIUM CHLORIDE 0.9% FLUSH 10 ML FLUSH IV FLUSH SCH ×2 (08:58→20:46)
[2016-10-06] MEDS: DOCUSATE SODIUM 100 MG CAP PO SCH ×2 (09:00→20:45)
--- NOTE | 2016-10-06 11:24 | HHI.NPPN ---
Subjective History of Present Illness 46 year old female with Kidney transplant has low grade fever, creatinine higher Review of Systems General Constitutional: Fatigue Objective Data Data 10/05/16 10/06/16 19:00 07:00 Intake Total 1096 ml Balance 1096 ml Intake Oral 0 ml IV Total 1096 ml # Voids 3 # Bowel Movements 0 Vital Signs Date Time Temp Pulse Resp B/P Pulse Ox O2 Delivery O2 Flow Rate FiO2 10/06/16 08:45 98.5 95 16 119/71 99 10/06/16 07:00 85 10/06/16 06:00 104 10/06/16 04:00 82 10/06/16 04:00 97.9 94 16 127/82 100 10/06/16 02:00 116 10/06/16 00:00 88 10/06/16 00:00 98.8 88 16 122/81 97 10/05/16 20:00 113 10/05/16 20:00 99.3 113 16 131/87 98 10/05/16 17:00 110 10/05/16 16:00 100 10/05/16 15:00 98 10/05/16 14:50 100 Room Air 10/05/16 14:37 98.3 95 16 120/75 100 -: 10/06/16 0450 10/06/16 0450 Microbiology 10/05/16 Aerobic Blood Culture - Preliminary, Resulted NO GROWTH IN 1 DAY 10/05/16 Anaerobic Blood Culture - Preliminary, Resulted NO GROWTH IN 1 DAY 10/05/16 Aerobic Blood Culture - Preliminary, Resulted NO GROWTH IN 1 DAY 10/05/16 Anaerobic Blood Culture - Preliminary, Resulted NO GROWTH IN 1 DAY Physical Exam General Appearance: Well Developed, Well Nourished Neck Neck Exam: Neck Supple Pulmonary Resp Exam: Clear Bilaterally, Breath Sounds Equal Cardiology CV Exam: Regular, Normal Sinus Rhythm Gastrointestinal/Abdomen GI Exam: Soft, Non-Tender, Bowel Sounds Present Extremeties Extremities Exam: No Edema Assessment/Plan Problem List: (1) Rejection of transplanted organ Plan: she will need a biopsy to confirm diagnosis, Cr higher Fever lower US reviewed (2) Renal transplant, status post Plan: as above maintain SoluMedrol, Prograf, Myfortic (3) Hypertension Plan: stable Problem Qualifiers (1) Hypertension: Qualified Code: I10 - Essential hypertension Gladys Gil MD Oct 06, 2016 11:24
[2016-10-06] MEDS ORDERED: SODIUM BICARBONATE 8.4% INJ 50 MEQ/50 ML SYR ONE (15:09)
[2016-10-06] MEDS ORDERED: LIDOCAINE HCL 1% PF 30 ML VIAL ONE (15:09)
--- NOTE | 2016-10-06 15:33 | RADRPT ---
EXAM DATE/TIME: 10/06/2016 12:17 [facility] COMPARISON: US KIDNEY / TRANSPLANT, October 05, 2016, 14:16. INDICATIONS : Rejection. MEDICAL HISTORY : Hypertension. Renal disease, end stage. Cardiac disorders. Respiratory disorders. Nausea. Genitourin hayden symptoms. Back pain. Claustrophobia. IGA Neuropathy. SURGICAL HISTORY : Kidney biopsy. Renal transplant. ENCOUNTER: Initial ACUITY: 3 weeks PAIN SCORE: 0/10 LOCATION: Right lower quadrant ORGAN: Right transplanted kidney SPECIMENS: Two core specimen(s) submitted for pathologic evaluation. DEVICE: 18 gauge Bio Pince needle Post procedure scanning reveals no hematoma or other complication. The possibility does exist that the tissue obtained will be non-diagnostic. If the sample is non-tatyana gnostic a repeat biopsy or surgical biopsy may need to be performed. TECHNIQUE: 1. Ultrasound guidance for needle biopsy. 2. Needle biopsy. The risks, benefits, and alternatives to ultrasound guided needle biopsy were explained to the patien t in detail including the risk of bleeding and infection. Written and verbal informed consent was ob tained. With the patient on the ultrasound table, images were obtained. Overlying skin was prepped and drape d in the usual sterile fashion and Lidocaine was utilized as a local anesthetic. A needle was advanced into the lateral right lower quadrant renal transplant at the lower pole and 2 biopsies were obtained and submitted for pathologic evaluation. The patient tolerated the procedure well and left the ultrasound suite in stable condition. CONCLUSION: Uncomplicated ultrasound guided needle biopsy of a right lower quadrant renal transplant. The more la teral of the 2 pediatric transplanted kidneys was sampled. Arturo Kim MD on October 06, 2016 at 15:30 Board Certified Radiologist. This report was verified electronically.
[2016-10-06] MEDS: LABETALOL HCL 200 MG TAB PO SCH (20:45)
[2016-10-06] MEDS: ACETAMINOPHEN 325 MG TAB PO PRN (21:21)
[2016-10-06] MEDS: ZOLPIDEM TARTRATE 5 MG TAB PO PRN (21:56)
[2016-10-07] VITALS (22 sets, daily range): BP systolic 116–125; BP diastolic 71–77; PULSE 81–114; RESP 16–18; TEMP 97.4–98; O2SAT 98–100
[2016-10-07] MEDS: ONDANSETRON HCL 4 MG/2 ML VIAL IV PUSH PRN (05:28)
[2016-10-07] MEDS: TACROLIMUS 5 MG CAP PO SCH (05:28)
[2016-10-07] MEDS: MYCOPHENOLATE SODIUM 360 MG DELAYED RELEASE TAB PO SCH ×2 (05:28→17:48)
[2016-10-07] MEDS: INSULIN ASPART SUPPLEMENTAL SCALE SQ SCH ×4 (06:22→21:06)
[2016-10-07 06:49] LABS: AUTOMATED NEUTROPHIL # 14.8 TH/MM3 (1.8-7.7); HEMO FLAGS DIFF FINAL; LYMPH % 2.1 % (9.0-44.0); LYMPHOCYTE # 0.3 TH/MM3 (1.0-4.8); MEAN CELL VOLUME 90.2 FL (80.0-100.0); MEAN CORPUSCULAR HEMOGLOBIN 30.2 PG (27.0-34.0); MEAN CORPUSCULAR HGB CONC 33.5 % (32.0-36.0); MONO % 2.6 % (0.0-8.0); NEUT % 95.3 % (16.0-70.0); PLATELET COUNT 292 TH/MM3 (150-450); RED BLOOD COUNT 2.67 MIL/MM3 (4.00-5.30); RED CELL DISTRIBUTION WIDTH 14.1 % (11.6-17.2); WHITE BLOOD COUNT 15.6 TH/MM3 (4.0-11.0)
[2016-10-07 07:01] LABS: BICARBONATE 19.5 MEQ/L (21.0-32.0); POTASSIUM 4.3 MEQ/L (3.5-5.1)
[2016-10-07] MEDS: NYSTATIN SUSP 500,000 U/5 ML CUP SWISH-SWAL SCH ×4 (09:01→21:06)
[2016-10-07] MEDS: PANTOPRAZOLE SOD 40 MG DELAYED RELEASE TAB PO SCH (09:02)
[2016-10-07] MEDS: POTASSIUM PHOSPHATE MONOBASIC 500 MG TAB PO SCH ×2 (09:02→21:06)
[2016-10-07] MEDS: SULFAMETHOXAZOLE-TRIMETHOPRIM DS 800-160 MG TAB PO SCH (09:02)
[2016-10-07] MEDS: DOCUSATE SODIUM 100 MG CAP PO SCH ×2 (09:02→21:05)
[2016-10-07] MEDS: methylPREDNISolone SOD SUCC 125 MG/2 ML VIAL IV PUSH SCH ×2 (09:02→21:05)
[2016-10-07] MEDS: SODIUM CHLORIDE 0.9% FLUSH 10 ML FLUSH IV FLUSH SCH ×2 (09:03→21:00)
--- NOTE | 2016-10-07 10:01 | HHI.NPPN ---
Subjective History of Present Illness 46 year old female with Kidney transplant has low grade fever, creatinine higher Review of Systems General Constitutional: Fatigue Objective Data Data 10/06/16 10/07/16 19:00 07:00 Intake Total 713 ml 1801 ml Output Total 400 ml 1200 ml Balance 313 ml 601 ml Intake Oral 240 ml 720 ml IV Total 473 ml 1081 ml Output Urine Total 400 ml 1200 ml # Voids 2 # Bowel Movements 0 Vital Signs Date Time Temp Pulse Resp B/P Pulse Ox O2 Delivery O2 Flow Rate FiO2 10/07/16 04:00 98.0 93 16 121/76 98 10/07/16 00:00 91 10/07/16 00:00 97.6 91 16 118/71 98 10/06/16 20:00 100 10/06/16 20:00 97.4 100 16 125/78 98 10/06/16 16:15 97.9 101 18 109/62 99 10/06/16 15:00 102 10/06/16 11:24 97.9 102 16 110/69 99 -: 10/07/16 0558 10/07/16 0558 Physical Exam General Appearance: Well Developed, Well Nourished Neck Neck Exam: Neck Supple Pulmonary Resp Exam: Clear Bilaterally, Breath Sounds Equal Cardiology CV Exam: Regular, Normal Sinus Rhythm Gastrointestinal/Abdomen GI Exam: Soft, Non-Tender, Bowel Sounds Present Extremeties Extremities Exam: No Edema Assessment/Plan Problem List: (1) Rejection of transplanted organ Plan: she had biopsy to confirm diagnosis, Cr higher d/w pt and Dr. Kirk if Rejection is confirmed plan for Thymoglobulin Fever resolved US negative tacrolimus above 13 level high may reduce the dose follow BMP Plan for Thymoglobulin (2) Renal transplant, status post Plan: as above maintain SoluMedrol, Prograf, Myfortic (3) Hypertension Plan: stable Problem Qualifiers (1) Hypertension: Qualified Code: I10 - Essential hypertension Gladys Gil MD Oct 07, 2016 10:01
--- NOTE | 2016-10-07 10:42 | HHI.PR ---
Subjective Remarks No c/o N/V, continues to get restful sleep on Ambien, no fevers overnight, received 250 steroids yesterday; denies dysuria, elio pO Objective Vital Signs Date Time Temp Pulse Resp B/P Pulse Ox O2 Delivery O2 Flow Rate FiO2 10/07/16 08:30 97.4 87 18 123/76 99 10/07/16 04:00 98.0 93 16 121/76 98 10/07/16 00:00 91 10/07/16 00:00 97.6 91 16 118/71 98 10/06/16 20:00 100 10/06/16 20:00 97.4 100 16 125/78 98 10/06/16 16:15 97.9 101 18 109/62 99 10/06/16 15:00 102 10/06/16 11:24 97.9 102 16 110/69 99 I/O 10/06/16 10/06/16 10/06/16 10/07/16 10/07/16 10/07/16 07:00 15:00 23:00 07:00 15:00 23:00 Intake Total 1096 ml 713 ml 1127 ml 674 ml Output Total 400 ml 600 ml 600 ml Balance 1096 ml 313 ml 527 ml 74 ml Intake Oral 0 ml 240 ml 480 ml 240 ml IV Total 1096 ml 473 ml 647 ml 434 ml Output Urine Total 400 ml 600 ml 600 ml # Voids 3 2 # Bowel Movements 0 0 0 Result Diagram: 10/07/1655710/07/1658 Objective Remarks Abd-soft, NT, ND; slim intact, min staple line erythema; non-fluctuant Assessment and Plan Assessment and Plan Cultures negative so far; CMV serologies pending, FK levels therapeutic, biopsy results pending but suspect ACR with lag response to steroids. Humphrey Kirk MD Oct 07, 2016 10:42
[2016-10-07] MEDS: SODIUM CHLOR 0.45% 1000 ML INJ 1,000 ML IV SCH (11:34)
[2016-10-07] MEDS: TACROLIMUS 1 MG CAP PO SCH (17:48)
[2016-10-07] MEDS: ACETAMINOPHEN 325 MG TAB PO PRN (18:16)
[2016-10-07] MEDS: LABETALOL HCL 200 MG TAB PO SCH (21:06)
[2016-10-08] VITALS (28 sets, daily range): BP systolic 127–148; BP diastolic 79–97; PULSE 76–93; RESP 16–18; TEMP 97.7–98.4; O2SAT 89–100
[2016-10-08] MEDS: MYCOPHENOLATE SODIUM 360 MG DELAYED RELEASE TAB PO SCH ×2 (06:00→18:26)
[2016-10-08] MEDS: INSULIN ASPART SUPPLEMENTAL SCALE SQ SCH ×4 (06:00→21:52)
[2016-10-08] MEDS: TACROLIMUS 1 MG CAP PO SCH ×2 (06:03→18:26)
[2016-10-08 06:16] LABS: AUTOMATED NEUTROPHIL # 11.9 TH/MM3 (1.8-7.7); HEMATOCRIT 21.7 % (35.0-46.0); HEMO FLAGS DIFF FINAL; LYMPH % 2.1 % (9.0-44.0); LYMPHOCYTE # 0.3 TH/MM3 (1.0-4.8); MEAN CELL VOLUME 90.1 FL (80.0-100.0); MEAN CORPUSCULAR HEMOGLOBIN 29.6 PG (27.0-34.0); MEAN CORPUSCULAR HGB CONC 32.9 % (32.0-36.0); NEUT % 95.9 % (16.0-70.0); PLATELET COUNT 256 TH/MM3 (150-450); RED BLOOD COUNT 2.41 MIL/MM3 (4.00-5.30); RED CELL DISTRIBUTION WIDTH 13.9 % (11.6-17.2); WHITE BLOOD COUNT 12.4 TH/MM3 (4.0-11.0)
[2016-10-08 06:45] LABS: BICARBONATE 21.1 MEQ/L (21.0-32.0)
[2016-10-08] MEDS: SULFAMETHOXAZOLE-TRIMETHOPRIM DS 800-160 MG TAB PO SCH (08:42)
[2016-10-08] MEDS: DOCUSATE SODIUM 100 MG CAP PO SCH ×2 (08:42→21:01)
[2016-10-08] MEDS: NYSTATIN SUSP 500,000 U/5 ML CUP SWISH-SWAL SCH ×4 (08:42→21:00)
[2016-10-08] MEDS: POTASSIUM PHOSPHATE MONOBASIC 500 MG TAB PO SCH ×2 (08:42→21:00)
[2016-10-08] MEDS: methylPREDNISolone SOD SUCC 125 MG/2 ML VIAL IV PUSH SCH (08:43)
--- NOTE | 2016-10-08 08:43 | HHI.PR ---
Subjective Remarks No c/o N/V, walked twice last night,slept well, no fevers overnight, denies dysuria, elio pO, continued on steroid taper Objective Vital Signs Date Time Temp Pulse Resp B/P Pulse Ox O2 Delivery O2 Flow Rate FiO2 10/08/16 06:22 80 10/08/16 05:08 76 10/08/16 04:00 85 10/08/16 03:00 77 10/08/16 03:00 97.8 93 135/85 97 10/08/16 02:00 76 10/08/16 01:00 84 10/08/16 00:47 97.8 91 127/82 99 10/08/16 00:00 84 10/07/16 23:00 81 10/07/16 22:00 82 10/07/16 21:00 92 10/07/16 20:00 86 10/07/16 19:00 109 10/07/16 19:00 97.6 86 125/77 100 10/07/16 18:02 97 10/07/16 17:01 88 10/07/16 16:00 92 10/07/16 15:05 97.8 99 16 116/72 99 10/07/16 15:01 98 10/07/16 14:00 96 10/07/16 13:00 94 10/07/16 12:01 114 10/07/16 11:01 97.6 88 16 121/77 99 10/07/16 11:00 92 10/07/16 10:00 102 10/07/16 09:00 84 I/O 10/07/16 10/07/16 10/07/16 10/08/16 10/08/16 10/08/16 07:00 15:00 23:00 07:00 15:00 23:00 Intake Total 674 ml 1853 ml 960 ml Output Total 600 ml 1650 ml 3600 ml Balance 74 ml 203 ml -2640 ml Intake Oral 240 ml 960 ml 960 ml IV Total 434 ml 893 ml Output Urine Total 600 ml 1650 ml 3600 ml # Voids 3 # Bowel Movements 0 0 Result Diagram: 10/08/16 0549 10/08/16 0549 Procedures Results of biopsy pending Other Results All cultures negative, CMV DNA neg Objective Remarks Abd soft, NT, ND; incsn C/D/I with slim in place; no hematoma, no ecchymoses , no fluctuance or bulging at wound site; no flank ecchymoses Medications and IVs Remains on IVF, switched to Myfortic Assessment and Plan Assessment and Plan FK levels remain therapeutic, biopsy results still pending but suspect ACR with lag response to steroids based on increased urine output and improved creatinine. No nausea or vomiting so far on Myfortic. Hematocrit concerning, will get an US to check for hematoma and recheck Hct, may possibly be dilutional with improved PO intake Humphrey Kirk MD Oct 08, 2016 08:43
[2016-10-08] MEDS: SODIUM CHLORIDE 0.9% FLUSH 10 ML FLUSH IV FLUSH SCH ×2 (08:44→21:00)
[2016-10-08] MEDS: PANTOPRAZOLE SOD 40 MG DELAYED RELEASE TAB PO SCH (08:48)
--- NOTE | 2016-10-08 11:02 | HHI.NPPN ---
Subjective History of Present Illness 46 year old female with Kidney transplant has low grade fever, creatinine at 1.5 Review of Systems General Constitutional: Fatigue Objective Data Data 10/07/16 10/08/16 19:00 07:00 Intake Total 1853 ml 960 ml Output Total 1650 ml 3600 ml Balance 203 ml -2640 ml Intake Oral 960 ml 960 ml IV Total 893 ml Output Urine Total 1650 ml 3600 ml # Voids 3 # Bowel Movements 0 Vital Signs Date Time Temp Pulse Resp B/P Pulse Ox O2 Delivery O2 Flow Rate FiO2 10/08/16 10:01 89 10/08/16 09:00 86 10/08/16 08:45 97.7 86 16 138/79 99 10/08/16 08:00 80 10/08/16 07:00 82 10/08/16 06:22 80 10/08/16 05:08 76 10/08/16 04:00 85 10/08/16 03:00 77 10/08/16 03:00 97.8 93 135/85 97 10/08/16 02:00 76 10/08/16 01:00 84 10/08/16 00:47 97.8 91 127/82 99 10/08/16 00:00 84 10/07/16 23:00 81 10/07/16 22:00 82 10/07/16 21:00 92 10/07/16 20:00 86 10/07/16 19:00 109 10/07/16 19:00 97.6 86 125/77 100 10/07/16 18:02 97 10/07/16 17:01 88 10/07/16 16:00 92 10/07/16 15:05 97.8 99 16 116/72 99 10/07/16 15:01 98 10/07/16 14:00 96 10/07/16 13:00 94 10/07/16 12:01 114 10/07/16 11:01 97.6 88 16 121/77 99 -: 10/08/16 0549 10/08/16 0549 Physical Exam General Appearance: Well Developed, Well Nourished Neck Neck Exam: Neck Supple Pulmonary Resp Exam: Clear Bilaterally, Breath Sounds Equal Cardiology CV Exam: Regular, Normal Sinus Rhythm Gastrointestinal/Abdomen GI Exam: Soft, Non-Tender, Bowel Sounds Present Extremeties Extremities Exam: No Edema Assessment/Plan Problem List: (1) Rejection of transplanted organ Plan: she had biopsy diagnosis normal kidney tissue no evidence of rejection, Cr better d/w pt and Dr. Kirk no Rejection continue steroid taper US negative tacrolimus 4 mg q 12 last level 11.1 yesterday follow BMP 1355 pm seen again CP sub sternal burning, feels like a Haskell now EKG no acute findings 02 sats 100% no SOB check Troponin, CPK Maalox Tacrolimus level 9 today will keep for observation give Myfortic with food likely side effect of medication Hb 7.2 new collection around Transplant kidney concern with hematoma d/w Dr. Kirk order repeat H/H possible PRBC. (2) Renal transplant, status post Plan: as above maintain Prednisone, Prograf, Myfortic (3) Hypertension Plan: stable Problem Qualifiers (1) Hypertension: Qualified Code: I10 - Essential hypertension Gladys Gil MD Oct 08, 2016 11:02
--- NOTE | 2016-10-08 11:04 | RADRPT ---
EXAM DATE/TIME: 10/08/2016 09:41 [facility] COMPARISON: US KIDNEY / TRANSPLANT, October 05, 2016, 14:16. INDICATIONS : Increased Lab Values. MEDICAL HISTORY : Hypertension. IGA Neuropathy. Renal disease, end stage. Cardiac disorders. Respiratory disorder.N ausea. Genitourinary symptoms. Back pain. Claustrophobia. SURGICAL HISTORY : Kidney biopsy. Renal transplant. ENCOUNTER: Initial ACUITY: 3 weeks PAIN SCORE: 4/10 LOCATION: Right lower quadrant MEASUREMENTS: TRANSPLANT KIDNEY: There are 2 pediatric transplanted kidneys in the right lower quadrant. The more lateral measures 7.5 x 3.9 x 4.6 cm and the more medial measures 8.0 x 4.9 x 4.4 cm. LOCATION: Right lower quadrant. PREVIOUS ULTRASOUND: Oct 05 2016 PREVIOUS ARCUATE ARTERIES INDEX: LATERAL KIDNEY: Upper - 0.6 Mid - 0.7 Lower - 0.6 ARCUATE ARTERIES RESISTIVE INDEX: Lateral: Upper - 0.6 Mid - 0.6 Lower - 0.6 Medial: Upper 0.6, mid 0.6, lower 0.6 RA/EIA Ratio: 0.6 MAIN RENAL ARTERY VELOCITY: (cm/sec): 140 cm/s MAIN RENAL VEIN: Patent for both kidneys. EXTERNAL ILIAC ARTERY VELOCITY (cm/sec): 235 cm/s * NORMAL DOPPLER FINDINGS Arcuate arteries - RI = 0.6 - 0.8 Renal artery = under 200 cm/sec Renal vein = May be monophasic with continuous flow or demonstrate some pulsatility with cardiac cycl e FINDINGS: TRANSPLANT KIDNEY: Normal cortical thickness and echotexture. No hydronephrosis, stone, or mass. There is a lobulated a nechoic fluid collection adjacent to the superior pole of the lateral transplanted kidney measuring a pproximately 7.9 x 6.2 x 3.1 cm. It does not abut the kidney and was not documented previously. URINARY BLADDER: Within normal limits given the degree of distension. CONCLUSION: 1. Normal ultrasound appearance of both transplanted right lower quadrant transplanted kidneys with n ormal vascular assessment. 2. There is a new or newly detected fluid collection adjacent to the superior pole of the more latera l of the transplanted kidneys. It measures 7.9 x 6.2 x 3.1 cm. Differential diagnosis includes seroma or less likely urinoma based on the location in relationship to the kidney. This is too early for a lymphocele. I do not believe it was related to the recent procedure since it is located adjacent to t he upper pole of the transplanted kidney and the biopsy was performed at the lower pole. Arturo Kim MD on October 08, 2016 at 10:53 Board Certified Radiologist. This report was verified electronically.
[2016-10-08] MEDS: ACETAMINOPHEN 325 MG TAB PO PRN ×2 (13:06→21:49)
[2016-10-08] MEDS ORDERED: ALUMINUM/MAGNESIUM/SIMETH 30 ML CUP PO PRN (14:15)
[2016-10-08] MEDS: SODIUM CHLOR 0.45% 1000 ML INJ 1,000 ML IV SCH (14:24)
[2016-10-08] MEDS: HEPARIN SODIUM - SQ 10,000 UNITS/ML VIAL SQ SCH (16:16)
--- NOTE | 2016-10-08 17:19 | EKG ---
Date Performed: 10/08/2016 Time Performed: 13:47:10 PTAGE: 46 years EKG: Sinus rhythm . Poor R wave progression - probable normal variant Borderline ECG PREVIOUS TRACING : 09/17/2016 01.43 No significant change from previous tracing noted. DOCTOR: Westley Carrasco Interpretating Date/Time 10/08/2016 17:17:35
[2016-10-08 18:37] LABS: HEMATOCRIT 26.5 % (35.0-46.0); MEAN CELL VOLUME 90.7 FL (80.0-100.0); MEAN CORPUSCULAR HEMOGLOBIN 29.9 PG (27.0-34.0); PLATELET COUNT 334 TH/MM3 (150-450); RED BLOOD COUNT 2.92 MIL/MM3 (4.00-5.30); RED CELL DISTRIBUTION WIDTH 14.1 % (11.6-17.2); REVIEW FLAG FINAL; WHITE BLOOD COUNT 13.6 TH/MM3 (4.0-11.0)
[2016-10-08] MEDS: LABETALOL HCL 200 MG TAB PO SCH (21:00)
[2016-10-09] VITALS (25 sets, daily range): BP systolic 125–140; BP diastolic 74–83; PULSE 73–114; RESP 16–18; TEMP 97.9–98.3; O2SAT 99–100
[2016-10-09] MEDS: HEPARIN SODIUM - SQ 10,000 UNITS/ML VIAL SQ SCH ×2 (04:36→14:39)
[2016-10-09] MEDS: TACROLIMUS 1 MG CAP PO SCH ×2 (06:14→17:01)
[2016-10-09 06:28] LABS: AUTOMATED NEUTROPHIL # 7.7 TH/MM3 (1.8-7.7); EOSINOPHIL % 0.1 % (0.0-4.0); HEMATOCRIT 21.8 % (35.0-46.0); HEMO FLAGS DIFF FINAL; LYMPH % 9.9 % (9.0-44.0); LYMPHOCYTE # 0.9 TH/MM3 (1.0-4.8); MEAN CELL VOLUME 89.9 FL (80.0-100.0); MEAN CORPUSCULAR HEMOGLOBIN 30.2 PG (27.0-34.0); MEAN CORPUSCULAR HGB CONC 33.6 % (32.0-36.0); MONO % 7.7 % (0.0-8.0); NEUT % 82.3 % (16.0-70.0); PLATELET COUNT 266 TH/MM3 (150-450); RED BLOOD COUNT 2.42 MIL/MM3 (4.00-5.30); RED CELL DISTRIBUTION WIDTH 14.3 % (11.6-17.2); WHITE BLOOD COUNT 9.3 TH/MM3 (4.0-11.0)
[2016-10-09 06:50] LABS: BICARBONATE 22.1 MEQ/L (21.0-32.0); POTASSIUM 4.7 MEQ/L (3.5-5.1)
[2016-10-09] MEDS: INSULIN ASPART SUPPLEMENTAL SCALE SQ SCH (07:00)
[2016-10-09] MEDS: PANTOPRAZOLE SOD 40 MG DELAYED RELEASE TAB PO SCH (08:56)
[2016-10-09] MEDS: SULFAMETHOXAZOLE-TRIMETHOPRIM DS 800-160 MG TAB PO SCH (08:56)
[2016-10-09] MEDS: POTASSIUM PHOSPHATE MONOBASIC 500 MG TAB PO SCH ×2 (08:56→21:24)
[2016-10-09] MEDS: DOCUSATE SODIUM 100 MG CAP PO SCH ×2 (08:57→21:00)
[2016-10-09] MEDS: methylPREDNISolone 4 MG TAB PO SCH (08:57)
[2016-10-09] MEDS: SODIUM CHLORIDE 0.9% FLUSH 10 ML FLUSH IV FLUSH SCH ×2 (08:57→21:00)
[2016-10-09] MEDS: NYSTATIN SUSP 500,000 U/5 ML CUP SWISH-SWAL SCH ×4 (08:57→21:23)
[2016-10-09] MEDS: MYCOPHENOLATE SODIUM 360 MG DELAYED RELEASE TAB PO SCH ×2 (08:57→17:01)
[2016-10-09] MEDS ORDERED: predniSONE 20 MG TAB PO SCH (09:00)
[2016-10-09] MEDS: SODIUM CHLOR 0.45% 1000 ML INJ 1,000 ML IV SCH ×2 (09:35→21:26)
--- NOTE | 2016-10-09 09:59 | HHI.NPPN ---
Subjective History of Present Illness 46 year old female with Kidney transplant has low grade fever, creatinine at 1.5 Review of Systems General Constitutional: Fatigue Objective Data Data 10/08/16 10/09/16 19:00 07:00 Intake Total 2799 ml 960 ml Output Total 1850 ml 1750 ml Balance 949 ml -790 ml Intake Oral 960 ml 960 ml IV Total 1839 ml Output Urine Total 1850 ml 1750 ml # Voids 4 # Bowel Movements 0 Vital Signs Date Time Temp Pulse Resp B/P Pulse Ox O2 Delivery O2 Flow Rate FiO2 10/09/16 08:00 80 10/09/16 08:00 97.9 97 16 137/79 100 10/09/16 06:34 73 10/09/16 05:00 79 10/09/16 04:30 98.0 79 18 127/83 99 10/09/16 04:06 77 10/09/16 03:00 77 10/09/16 03:00 98.0 79 18 127/83 99 10/09/16 02:13 79 10/09/16 01:00 79 10/09/16 00:05 79 10/09/16 00:05 98.0 79 18 130/80 99 10/08/16 23:00 81 10/08/16 22:00 80 10/08/16 21:00 80 10/08/16 20:00 98.0 85 18 140/96 98 10/08/16 20:00 88 10/08/16 19:00 90 10/08/16 18:01 76 10/08/16 17:01 88 10/08/16 16:00 82 10/08/16 15:30 98.4 89 18 147/97 89 10/08/16 15:01 84 10/08/16 14:10 18 10/08/16 14:01 88 10/08/16 13:09 90 18 148/91 100 10/08/16 13:00 90 10/08/16 12:01 88 10/08/16 11:01 98.0 88 18 133/85 99 10/08/16 11:01 84 10/08/16 10:01 89 -: 10/09/16 0501 10/09/16 0501 Physical Exam General Appearance: Well Developed, Well Nourished Neck Neck Exam: Neck Supple Pulmonary Resp Exam: Clear Bilaterally, Breath Sounds Equal Cardiology CV Exam: Regular, Normal Sinus Rhythm Gastrointestinal/Abdomen GI Exam: Soft, Non-Tender, Bowel Sounds Present Extremeties Extremities Exam: No Edema Assessment/Plan Problem List: (1) Rejection of transplanted organ Plan: she had biopsy diagnosis normal kidney tissue no evidence of rejection, Cr down to normal at 1 continue steroid taper she did not tolerated Prednisone, on Medrol 8 mg daily US negative tacrolimus 4 mg q 12 last level 9 yesterday follow BMP CP resolved however Troponin is positive 0.24 from 0.03 yesterday Cardiology help appreciated stress test today repeat Hb 8.7 - today 7.3 baseline 7.2 no evidence of hematoma per Radiology fluid collection seroma (2) Renal transplant, status post Plan: as above maintain Prednisone, Prograf, Myfortic (3) Hypertension Plan: stable Problem Qualifiers (1) Hypertension: Qualified Code: I10 - Essential hypertension Gladys Gil MD Oct 09, 2016 09:59
--- NOTE | 2016-10-09 10:32 | MB ---
cc: JULIAN VELÁSQUEZ M.D. DATE OF CONSULTATION: 10/09/2016 REASON FOR CONSULTATION: Chest pain, abnormal troponin level. HISTORY OF PRESENT ILLNESS The patient is a very pleasant 46-year-old white female with a history of hypertension, end-stage renal disease,status post donor kidney transplant 09/17/2016 who was readmitted 10/05/2016 with nausea, low grade fever, possible mild transplant rejection. Yesterday she was going to be discharged but she developed an episode of substernal chest discomfort described as burning or "like a knot". The episode lasted about 90 minutes and was and there was no associated shortness of breath, nausea or diaphoresis. She has had no further episodes. In the last few months. She cannot recall any episodes of chest discomfort. She also denies pleurisy, dizziness, syncope, near-syncope, palpitations, pedal edema, paroxysmal nocturnal dyspnea and dyspepsia. A troponin level was checked and found to be slightly abnormal. PAST MEDICAL HISTORY 1. End-stage renal disease due to IgA nephropathy, status post donor transplant 09/17/2016. 2. Hypertension. PAST SURGICAL HISTORY 1. Kidney transplant. 2. Kidney biopsy MEDICATIONS Her current cardiac medications; 1. Heparin 5000 units subcutaneously q.12 h. 2. Labetalol 200 mg p.o. q.h.s. 3. Potassium phosphate 500 mg p.o. q.12 h. ALLERGIES ZITHROMAX FAMILY HISTORY: There is no significant family history of early myocardial infarction. Her dad did pass away from myocardial infarction in his 70s. SOCIAL HISTORY The patient denies any history of alcohol, tobacco abuse. REVIEW OF SYSTEMS Review of systems as in the history of present illness otherwise negative or noncontributory. She also denies headache, abdominal pain, melena, diarrhea, bright red blood per rectum. PHYSICAL EXAMINATION: VITAL SIGNS: blood pressure 127/83 with a pulse of 73, respirations 18. IN GENERAL: In general she is a well-developed, well-nourished white female in no acute distress. HEAD, EYES, EARS, NOSE, AND THROAT: Jugular venous pressure is normal. Carotid pulses are 2+ bilaterally and without bruits. CHEST: Examination of the chest reveals clear lung valdes. CARDIOVASCULAR SYSTEM: On cardiac examination she has a regular rhythm and rate without S3-S4 or murmur. ABDOMEN: On abdominal examination she has a soft abdomen. Aggressive palpation was not pursued. Bowel sounds are present. EXTREMITIES: Examination of extremities reveals no clubbing, cyanosis or edema. LABORATORY DATA: Laboratory data includes WBC 9.3, hemoglobin 7.3, platelets 266, BUN 26, creatinine 1.00, CK 80, troponin 0.24, potassium 4.7, INR 1.0. RADIOLOGIC: Chest x-ray Shows no acute disease. EKG shows sinus rhythm, borderline poor R-wave progression. IMPRESSION Chest pain, slightly abnormal troponin level in this 46-year-old white female status post recent kidney transplant. She has had no further chest discomfort. The etiology of her chest pain is not entirely clear. EKG shows no acute ST-segment or T-wave changes. The slightly elevated troponin level may be due to renal insufficiency. CK levels are negative for myocardial infarction despite fairly prolonged chest discomfort (90 minutes) yesterday. Clinical suspicion for pulmonary embolism or aortic dissection is extremely low. Coronary artery disease risk factors include hypertension, hyperlipidemia. RECOMMENDATIONS 1. Check nuclear stress test to rule out myocardial ischemia. 2. Will follow up as needed for any abnormal findings demonstrated on nuclear stress testing. MD PETER Jose/darshana /8:52 AM /10:14 AM MTDD
[2016-10-09] MEDS ORDERED: REGADENOSON INJ 0.4 MG/5 ML SYR ONE (13:13)
[2016-10-09] MEDS ORDERED: AMINOPHYLLINE INJ 250 MG/10 ML VIAL ONE (13:41)
--- NOTE | 2016-10-09 14:51 | RADRPT ---
EXAM DATE/TIME: 10/09/2016 12:18 [facility] COMPARISON: No previous studies available for comparison. INDICATIONS : Hypertensive episode following kidney transplant. Angina. DOSE: 25.9 mCi Tc99m Myoview at stress. 8.6 mCi Tc99m Myoview at rest. 0.4 mg Lexiscan STRESS SYMPTOMS: Lightheaded, nausea, and headache. MEDICATIONS: 1.) 100 mg Aminophylline IV EJECTION FRACTION: 67% MEDICAL HISTORY : Hypertension. SURGICAL HISTORY : Kidney transplant. ENCOUNTER: Initial ACUITY: 1 day PAIN SCALE: 0/10 LOCATION: chest TECHNIQUE: The patient underwent pharmacologic stress with infusion of prescribed dose. Continuous ECG tracing was monitored during stress. Gated SPECT imaging was performed after stress and conventional SPECT i maging was performed at rest. The examination was performed on a SPECT/CT scanner, both attenuation and non-corrected datasets were reviewed. FINDINGS: DISTRIBUTION: The maximum perfused segment at stress is in the lateral wall. PERFUSION STUDY: The pattern of perfusion at stress is within normal limits. GATED STUDY: There is intact wall motion and thickening without hypokinetic or dyskinetic segments. CONCLUSION: 1. No definite reversible perfusion defects are identified to suggest stress-induced myocardial ische salma. RISK CATEGORY: Low (<1% Annual Mortality Rate) Robert Dukes MD on October 09, 2016 at 14:48 Board Certified Radiologist. This report was verified electronically.
[2016-10-09] MEDS: ACETAMINOPHEN 325 MG TAB PO PRN (18:30)
[2016-10-09] MEDS: LABETALOL HCL 200 MG TAB PO SCH (21:23)
[2016-10-09] MEDS: ZOLPIDEM TARTRATE 5 MG TAB PO PRN (21:23)
[2016-10-10] VITALS (16 sets, daily range): BP systolic 128–146; BP diastolic 77–94; PULSE 76–102; RESP 16–18; TEMP 97.9–98.3; O2SAT 99–100
[2016-10-10] MEDS: HEPARIN SODIUM - SQ 10,000 UNITS/ML VIAL SQ SCH (04:16)
[2016-10-10] MEDS: TACROLIMUS 1 MG CAP PO SCH (06:00)
[2016-10-10] MEDS: ACETAMINOPHEN 325 MG TAB PO PRN (06:01)
[2016-10-10 06:29] LABS: AUTOMATED NEUTROPHIL # 4.8 TH/MM3 (1.8-7.7); BASOPHIL % 0.5 % (0.0-2.0); EOSINOPHIL # 0.1 TH/MM3 (0-0.4); EOSINOPHIL % 2.1 % (0.0-4.0); HEMATOCRIT 23.6 % (35.0-46.0); LYMPHOCYTE # 1.1 TH/MM3 (1.0-4.8); MEAN CELL VOLUME 90.4 FL (80.0-100.0); MEAN CORPUSCULAR HEMOGLOBIN 29.9 PG (27.0-34.0); MONO % 9.4 % (0.0-8.0); PLATELET COUNT 309 TH/MM3 (150-450); RED BLOOD COUNT 2.62 MIL/MM3 (4.00-5.30); RED CELL DISTRIBUTION WIDTH 14.2 % (11.6-17.2); WHITE BLOOD COUNT 6.6 TH/MM3 (4.0-11.0)
[2016-10-10 06:34] LABS: HEMO FLAGS AUTO DIFF
[2016-10-10 06:50] LABS: ALKALINE PHOSPHATASE 79 U/L (45-117); ALT (GPT) 45 U/L (10-53); ANION GAP 7 MEQ/L (5-15); AST (GOT) 15 U/L (15-37); BICARBONATE 23.4 MEQ/L (21.0-32.0); BLOOD UREA NITROGEN 27 MG/DL (7-18); CHLORIDE 109 MEQ/L (98-107); GLOMERULAR FILTRATION RATE 53 ML/MIN (>89); MAGNESIUM 1.6 MG/DL (1.5-2.5); POTASSIUM 4.4 MEQ/L (3.5-5.1); SODIUM (NA) 139 MEQ/L (136-145); TOTAL BILIRUBIN ADULT 0.2 MG/DL (0.2-1.0)
[2016-10-10] MEDS: NYSTATIN SUSP 500,000 U/5 ML CUP SWISH-SWAL SCH (08:15)
[2016-10-10] MEDS: SULFAMETHOXAZOLE-TRIMETHOPRIM DS 800-160 MG TAB PO SCH (08:15)
[2016-10-10] MEDS: DOCUSATE SODIUM 100 MG CAP PO SCH (08:15)
[2016-10-10] MEDS: SODIUM CHLORIDE 0.9% FLUSH 10 ML FLUSH IV FLUSH SCH (08:16)
[2016-10-10] MEDS: MYCOPHENOLATE SODIUM 360 MG DELAYED RELEASE TAB PO SCH (08:16)
[2016-10-10] MEDS: PANTOPRAZOLE SOD 40 MG DELAYED RELEASE TAB PO SCH (08:16)
[2016-10-10] MEDS: POTASSIUM PHOSPHATE MONOBASIC 500 MG TAB PO SCH (08:16)
[2016-10-10] MEDS: methylPREDNISolone 4 MG TAB PO SCH (08:16)
[2016-10-10 08:28] LABS: BANDS 1 % (0-6); METAMYELOCYTES 1 % (0-1); MYELOCYTES 2 % (0-0); NEUTROPHIL # MANUAL DIFF 5.3 TH/MM3 (1.8-7.7); PLATELET ESTIMATE SMEAR NORMAL (NORMAL); PLATELET MORPHOLOGY NORMAL (NORMAL); POLYS (SEG NEUTROPHILS) 76 % (16-70); PROMYELOCYTES 1 % (0-0); SCAN/DIFF FINAL DIFF MANUAL; WBC DIFF SAMPLE 100
[2016-10-10 08:29] LABS: OVALOCYTES 1+ (NORMAL)
--- NOTE | 2016-10-10 10:11 | PD.CARD.PN ---
Subjective Subjective Remarks No further CP. No dyspnea, nausea. Objective Medications Item Value Date Time Heparin Sodium 5,000 units 10/08/16 1500 (Porcine) Q12H/SQ 10/10/16 0416 (Heparin Inj) Labetalol HCl 200 mg 10/05/162099 (Trandate) HS/PO 10/09/162122 Potassium 500 mg 10/05/162099 Phosphate Q12HR/PO 10/10/16 0816 (K-Phos) Vital Signs / I&O Vital Signs Date Time Temp Pulse Resp B/P Pulse Ox O2 Delivery O2 Flow Rate FiO2 10/10/16 08:01 98.3 85 18 129/77 99 10/10/16 06:00 78 10/10/16 05:00 76 10/10/16 04:25 80 16 146/94 100 10/10/16 04:00 76 10/10/16 03:00 81 10/10/16 02:00 78 10/10/16 01:00 80 10/10/16 00:00 88 10/09/16 23:30 88 16 125/74 99 10/09/16 23:00 82 10/09/16 22:00 114 10/09/16 21:00 98 10/09/16 20:00 100 10/09/16 19:30 98.2 94 16 126/78 100 10/09/16 19:00 104 10/09/16 18:00 102 10/09/16 17:00 98 10/09/16 16:00 98.2 106 16 140/80 99 10/09/16 16:00 114 10/09/16 15:00 100 10/09/16 12:00 86 10/09/16 12:00 98.3 90 18 128/82 100 10/09/16 11:00 88 I/O 10/09/16 10/09/16 10/09/16 10/10/16 10/10/16 10/10/16 07:00 15:00 23:00 07:00 15:00 23:00 Intake Total 960 ml 2020 ml 1300 ml Output Total 1750 ml 1900 ml 1650 ml Balance -790 ml 120 ml -350 ml Intake Oral 960 ml 1320 ml 400 ml IV Total 700 ml 900 ml Output Urine Total 1750 ml 1900 ml 1650 ml # Bowel Movements 1 0 Physical Exam GENERAL: Well developed, well nourished. No acute distress. HEENT: Jugular venous pressure is normal. CHEST: Lungs clear to auscultation bilaterally. Unlabored respiratory effort. CARDIAC: Regular rate and rhythm without S3, S4, or murmur. ABDOMEN: Soft, nontender, no hepatosplenomegaly. Bowel sounds present. EXTREMITIES: No clubbing, cyanosis, or edema. Laboratory Laboratory Tests Test 10/10/16 05:35 White Blood Count 6.6 TH/MM3 Red Blood Count 2.62 MIL/MM3 Hemoglobin 7.8 GM/DL Hematocrit 23.6 % Mean Corpuscular Volume 90.4 FL Mean Corpuscular Hemoglobin 29.9 PG Mean Corpuscular Hemoglobin 33.0 % Concent Red Cell Distribution Width 14.2 % Platelet Count 309 TH/MM3 Mean Platelet Volume 8.5 FL Neutrophils (%) (Auto) 72.0 % Lymphocytes (%) (Auto) 16.0 % Monocytes (%) (Auto) 9.4 % Eosinophils (%) (Auto) 2.1 % Basophils (%) (Auto) 0.5 % Neutrophils # (Auto) 4.8 TH/MM3 Lymphocytes # (Auto) 1.1 TH/MM3 Monocytes # (Auto) 0.6 TH/MM3 Eosinophils # (Auto) 0.1 TH/MM3 Basophils # (Auto) 0.0 TH/MM3 CBC Comment AUTO DIFF Differential Total Cells 100 Counted Neutrophils % (Manual) 76 % Band Neutrophils % 1 % Lymphocytes % 12 % Monocytes % 7 % Neutrophils # (Manual) 5.3 TH/MM3 Metamyelocytes 1 % Myelocytes 2 % Promyelocytes 1 % Differential Comment FINAL DIFF MANUAL Platelet Estimate NORMAL Platelet Morphology Comment NORMAL Ovalocytes 1+ Sodium Level 139 MEQ/L Potassium Level 4.4 MEQ/L Chloride Level 109 MEQ/L Carbon Dioxide Level 23.4 MEQ/L Anion Gap 7 MEQ/L Blood Urea Nitrogen 27 MG/DL Creatinine 1.11 MG/DL Estimat Glomerular Filtration 53 ML/MIN Rate Random Glucose 96 MG/DL Calcium Level 7.9 MG/DL Phosphorus Level 2.0 MG/DL Magnesium Level 1.6 MG/DL Total Bilirubin 0.2 MG/DL Aspartate Amino Transf 15 U/L (AST/SGOT) Alanine Aminotransferase 45 U/L (ALT/SGPT) Alkaline Phosphatase 79 U/L Total Protein 5.6 GM/DL Albumin 2.5 GM/DL Imaging Last 48 hours Impressions Myocardial Perfusion Scan Nuc Med 10/09/16 0000 Signed Impressions: Service Date/Time: Sunday, October 09, 2016 12:18 - CONCLUSION: 1. No definite reversible perfusion defects are identified to suggest stress-induced myocardial ischemia. RISK CATEGORY: Low (<1%% Annual Mortality Rate) Robert Dukes MD Assessment and Plan Problem List: (1) Chest pain Assessment and Plan: Stable overnight. Nuclear stress test images reviewed, agree with normal interpretation. OK for discharge from a cardiac standpoint. (2) Hypertension Assessment and Plan: Fluctuating BP's, mostly normal. Monitor as outpatient. Code Status full code Discussed Condition With patient Problem Qualifiers (1) Chest pain: Qualified Code: R07.9 - Chest pain, unspecified type (2) Hypertension: Qualified Code: I10 - Essential hypertension Westley Carrasco MD Oct 10, 2016 10:11
--- NOTE | 2016-10-10 11:42 | HHI.DS ---
Discharge Summary Admission Date Oct 06, 2016 at 11:18 Admitting Diagnosis Fever status post kidney transplant to rule out rejection (1) Rejection of transplanted organ Plan: Patient is exhibiting signs of rejection discussed with Dr. 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 She did not reported to have fevers until today, she was given promethazine for nausea as her called to report nausea and decreased appetite. CBC/BMP: 10/10/16 0535 10/10/16 0535 Significant Findings Laboratory Tests Test 10/08/16 10/08/16 10/09/16 10/10/16 05:49 18:29 05:01 05:35 White Blood Count 12.4 TH/MM3 13.6 TH/MM3 (4.0-11.0) (4.0-11.0) Red Blood Count 2.41 MIL/MM3 2.92 MIL/MM3 2.42 MIL/MM3 2.62 MIL/MM3 (4.00-5.30) (4.00-5.30) (4.00-5.30) (4.00-5.30) Hemoglobin 7.2 GM/DL 8.7 GM/DL 7.3 GM/DL 7.8 GM/DL (11.6-15.3) (11.6-15.3) (11.6-15.3) (11.6-15.3) Hematocrit 21.7 % 26.5 % 21.8 % 23.6 % (35.0-46.0) (35.0-46.0) (35.0-46.0) (35.0-46.0) Neutrophils (%) (Auto) 95.9 % 82.3 % 72.0 % (16.0-70.0) (16.0-70.0) (16.0-70.0) Lymphocytes (%) (Auto) 2.1 % (9.0-44.0) Neutrophils # (Auto) 11.9 TH/MM3 (1.8-7.7) Lymphocytes # (Auto) 0.3 TH/MM3 0.9 TH/MM3 (1.0-4.8) (1.0-4.8) Chloride Level 111 MEQ/L 112 MEQ/L 109 MEQ/L (98-107) (98-107) (98-107) Blood Urea Nitrogen 33 MG/DL (7-18) 26 MG/DL (7-18) 27 MG/DL (7-18) Creatinine 1.25 MG/DL 1.11 MG/DL (0.50-1.00) (0.50-1.00) Estimat Glomerular Filtration 46 ML/MIN (>89) 60 ML/MIN (>89) 53 ML/MIN (>89) Rate Random Glucose 162 MG/DL (74-106) Calcium Level 7.9 MG/DL 8.0 MG/DL 7.9 MG/DL (8.5-10.1) (8.5-10.1) (8.5-10.1) Troponin I 0.24 NG/ML (0.02-0.05) Monocytes (%) (Auto) 9.4 % (0.0-8.0) Neutrophils % (Manual) 76 % (16-70) Myelocytes 2 % (0-0) Promyelocytes 1 % (0-0) Ovalocytes 1+ (NORMAL) Phosphorus Level 2.0 MG/DL (2.5-4.9) Total Protein 5.6 GM/DL (6.4-8.2) Albumin 2.5 GM/DL (3.4-5.0) PE at Discharge GENERAL: Well-nourished, well-developed patient. SKIN: Warm and dry. HEAD: Normocephalic. EYES: No scleral icterus. No injection or drainage. NECK: Supple, trachea midline. No JVD or lymphadenopathy. CARDIOVASCULAR: Regular rate and rhythm without murmurs, gallops, or rubs. RESPIRATORY: Breath sounds equal bilaterally. No accessory muscle use. GASTROINTESTINAL: Abdomen soft, non-tender, nondistended. Daniel on the right lower abdomen is intact no drainage EXTREMITIES: No cyanosis, or edema. NEUROLOGICAL: Awake, alert, and oriented x 3. Non-focal. Hospital Course Patient was admitted to for possible rejection she was started on Solu-Medrol at 125 mg twice a day and biopsy was arranged this was done next day and she continued to do better on steroids, Prograf and CellCept was continued however the CellCept was changed to Myfortic due to nausea. Her biopsy came back and it was negative for rejection, CMV PCR negative however her creatinine did respond to steroids and dropped by third day. Patient developed a retrosternal chest pain and was evaluated for angina she was monitored and troponin was done , cardiology was consulted Dr. Carrasco did the stress test and she was thought to be at low risk for coronary event. She was observed for complication from kidney biopsies as well he was a fluid Collection Which Was Thought to Be a Seroma. At the Time of Discharge Her Creatinine Was 1.11, Dr. Kirk agreed with the plan as well She Improved. She Only Has One Episode of Chest Pain Was Resolved and It Was Thought That It Could Be Medication Induced and Myfortic Was Given after the Food. She Continued to Feel Better and Is Discharged Today to Follow-Up at Transplant Clinic. Pt Condition on Discharge: Good Discharge Disposition: Discharge Home Discharge Instructions DIET: Follow Instructions for: Diabetic Diet Additional Diet Instructions: BG was Flared3D watch sugar Activities you can perform: Weight Bearing as [place] Activities to Avoid: Strenuous Activity, Bathing, Driving Gladys Gil MD Oct 10, 2016 11:42
[2016-10-10] MEDS ORDERED: MYCO360 PO (11:48)
[2016-10-10] MEDS ORDERED: AMBI5TAB PO (11:48)
[2016-10-10] MEDS ORDERED: TACR1 PO (11:48)
[2016-10-10] MEDS ORDERED: LABE200T2 PO (11:48)
[2016-10-10] MEDS ORDERED: PANT40TA3 PO (11:48)
[2016-10-10] MEDS ORDERED: MEDR4TAB PO (11:48)
[2016-10-10] MEDS ORDERED: BACT800T5 PO (11:48)
[2016-10-10] MEDS ORDERED: VALG450 PO (11:48)
== END 2016-10-10 13:15 | disposition home or self-care (01) | DRG 698 ==
LOC: HCIN 12:54 → OBSVTOIN 10-06 11:18
PROVIDERS: ADMIT Internal Medicine Nephrology; ATTEND Internal Medicine Nephrology
PROC: 0TB03ZX Excision of Right Kidney, Percutaneous Approach, Diagnostic (ICD-10-PCS; principal; 2016-10-06)
DX: T86.11 Kidney transplant rejection (principal); N18.6 End stage renal disease; I12.0 Hypertensive chronic kidney disease with stage 5 chronic kidney disease or end stage renal disease; I99.8 Other disorder of circulatory system; Z79.52 Long term (current) use of systemic steroids
CPT/HCPCS: 50200; 71010; 76776; 76937; 76942; 78452; 80048; 80053; 80197; 81001; 82550; 82948; 83735; 84100; 84484; 85007; 85025; 85027; 85610; 85730; 86850; 86900; 86901; 87040; 87497; 93005; 93017; A9502; J0280; J1644; J1815; J2405; J2785; J2930; J7507; J7509; J7518

== ENCOUNTER 2016-10-18 13:38 | Emergency (ER) | payer BC ==
[~2016-10-18] VITALS: Ht 167.6 cm; Wt 76.0 kg
[~2016-10-18 13:38] MED LIST changes: +AMBI5TAB PO; +BACT800T5 PO; -DILA2TAB2 PO; +MEDR4TAB PO; +MYCO360 PO; -MYCO500 PO; -NIFE30TA8 PO; -PANT40P IV PUSH; +PANT40TA3 PO; -PRED10 PO; +TACR1 PO; -TACR5 PO
[2016-10-18 13:40] VITALS: BP 143/84; PULSE 104; RESP 20; TEMP 98.5; O2SAT 100
[2016-10-18] MEDS ORDERED: TACR5 PO (14:16)
[2016-10-18] MEDS ORDERED: MEDR4TAB PO (14:16)
[2016-10-18] MEDS ORDERED: CALC500C6 CHEW (14:37)
[2016-10-18] MEDS ORDERED: K-PHTAB PO (14:37)
[2016-10-18] MEDS ORDERED: SODIUM CHLORIDE 0.9% FLUSH 10 ML FLUSH IV FLUSH PRN (14:45)
--- NOTE | 2016-10-18 14:45 | PD ---
HPI Chief Complaint: Abdominal Pain Time Seen by Provider: 14:09 Travel History International Travel<30 days: No Contact w/Intl Traveler<30days: No Traveled to known affect area: No History of Present Illness HPI Patient is a 46-year-old female who is approximately one month postoperative from a kidney transplant. She had noticed some right lower quadrant abdominal swelling and a mass which was over her graft site. She called her technical operations manager Dr. Rojo who recommended she come into the emergency department for a CAT scan. Patient has no other complaints at this time. States that her surgical site is healing well she's been taking her immunosuppressants and doing quite well after the surgery. Denies any nausea vomiting abdominal pain diarrhea or dysuria. PFSH Past Medical History Autoimmune Disease: Yes (IGA NEPHROPATHY ) Cancer: No Cardiovascular Problems: Yes Diabetes: No Endocrine: No Genitourinary: Yes Hepatitis: No Hiatal Hernia: No Hypertension: Yes Immune Disorder: Yes Musculoskeletal: No Neurologic: No Psychiatric: No Reproductive: No Respiratory: Yes Thyroid Disease: No ?: Not LMP: 09/17/16 Past Surgical History Abdominal Surgery: No AICD: No Cardiac Surgery: No Ear Surgery: No Endocrine Surgery: No Eye Surgery: No Genitourinary Surgery: No Gynecologic Surgery: No Joint Replacement: No Oral Surgery: No Pacemaker: No Thoracic Surgery: No Other Surgery: Yes (KIDNEY BIOPSY, KIDNEY TRANSPLANT 09/17/16) Social History Alcohol Use: No Tobacco Use: No Substance Use: No Allergies-Medications (Allergen,Severity, Reaction): Coded Allergies: Zithromax (Verified Adverse Reaction, Mild, 10/18/16) Reported Meds & Prescriptions Reported Meds & Active Scripts Active Labetalol (Labetalol HCl) 200 Mg Tab 200 Mg PO HS Myfortic (Mycophenolate Sodium) 360 Mg Tab 720 Mg PO BIDPC Pantoprazole (Pantoprazole Sodium) 40 Mg Tab 40 Mg PO DAILY Bactrim DS (Sulfamethoxazole-Trimethoprim) 800-160 Mg Tab 1 Tab PO DAILY 30 Days Ambien (Zolpidem Tartrate) 5 Mg Tab 5 Mg PO HS PRN Valcyte (Valganciclovir) 450 Mg Tab 450 Mg PO DAILY Nystatin Liq 100,000 unit/ml Susp 5 Ml SWISH-SWAL TID@09,13,21 30 Days Dok (Docusate Sodium) 100 Mg Cap 100 Mg PO BID Reported Calcium Carbonate 500 Mg Chew 500 Mg CHEW BID 500 mg calcium carbonate (200 mg elemental calcium) K-Phos (Potassium Phosphate Monobasic) 500 Mg Tab 500 Mg PO BID Medrol (Methylprednisolone) 4 Mg Tab 4 Mg PO DAILY Prograf (Tacrolimus) 5 Mg Cap 5 Mg PO BID Review of Systems Except as stated in HPI: all other systems reviewed are Neg Physical Exam Narrative GENERAL: Well-developed well-nourished no apparent distress SKIN: Focused skin assessment warm/dry. HEAD: Atraumatic. Normocephalic. EYES: Pupils equal and round. No scleral icterus. No injection or drainage. ENT: No nasal bleeding or discharge. Mucous membranes pink and moist. NECK: Trachea midline. No JVD. CARDIOVASCULAR: Regular rate and rhythm. No murmur appreciated. RESPIRATORY: No accessory muscle use. Clear to auscultation. Breath sounds equal bilaterally. GASTROINTESTINAL: Abdomen soft, non-tender, nondistended. Hepatic and splenic margins not palpable. There is a right lower quadrant surgical scar which is healing well. There is a palpable small approximately 4 x 4 cm area of what appears to be induration. The overlying skin is healing well there is no ecchymotic area and no cellulitis. Nontender to palpation. MUSCULOSKELETAL: No obvious deformities. No clubbing. No cyanosis. No edema. NEUROLOGICAL: Awake and alert. No obvious cranial nerve deficits. Motor grossly within normal limits. Normal speech. PSYCHIATRIC: Appropriate mood and affect; insight and judgment normal. Data Data Last Documented VS Vital Signs Date Time Temp Pulse Resp B/P Pulse Ox O2 Delivery O2 Flow Rate FiO2 10/18/16 17:05 97 17 134/87 98 10/18/16 15:11 Room Air 10/18/16 13:40 98.5 Orders Complete Blood Count With Diff (10/18/16 14:43) Comprehensive Metabolic Panel (10/18/16 14:43) Prothrombin Time / Inr (Pt) (10/18/16 14:43) Act Partial Throm Time (Ptt) (10/18/16 14:43) Urinalysis - C+S If Indicated (10/18/16 14:43) Ct Abd/Pel W/O Iv Contrast (10/18/16 14:43) Iv Access Insert/Monitor (10/18/16 14:43) Ecg Monitoring (10/18/16 14:43) Oximetry (10/18/16 14:43) Sodium Chloride 0.9% Flush (Ns Flush) (10/18/16 14:45) Electrocardiogram (10/18/16 14:43) Ed Urine Pregnancytest Poc (10/18/16 14:43) Labs Laboratory Tests Test 10/18/16 15:04 White Blood Count 9.7 TH/MM3 Red Blood Count 3.23 MIL/MM3 Hemoglobin 9.7 GM/DL Hematocrit 29.6 % Mean Corpuscular Volume 91.6 FL Mean Corpuscular Hemoglobin 30.0 PG Mean Corpuscular Hemoglobin 32.7 % Concent Red Cell Distribution Width 15.0 % Platelet Count 310 TH/MM3 Mean Platelet Volume 7.8 FL Neutrophils (%) (Auto) 86.0 % Lymphocytes (%) (Auto) 5.4 % Monocytes (%) (Auto) 6.5 % Eosinophils (%) (Auto) 0.6 % Basophils (%) (Auto) 1.5 % Neutrophils # (Auto) 8.3 TH/MM3 Lymphocytes # (Auto) 0.5 TH/MM3 Monocytes # (Auto) 0.6 TH/MM3 Eosinophils # (Auto) 0.1 TH/MM3 Basophils # (Auto) 0.1 TH/MM3 CBC Comment DIFF FINAL Differential Comment Prothrombin Time 10.2 SEC Prothromb Time International 0.9 RATIO Ratio Activated Partial 23.5 SEC Thromboplast Time Urine Color LIGHT-YELLOW Urine Turbidity CLEAR Urine pH 7.0 Urine Specific [place] 1.007 Urine Protein NEG mg/dL Urine Glucose (UA) NEG mg/dL Urine Ketones NEG mg/dL Urine Occult Blood NEG Urine Nitrite NEG Urine Bilirubin NEG Urine Urobilinogen LESS THAN 2.0 MG/DL Urine Leukocyte Esterase NEG Microscopic Urinalysis Comment CULT NOT INDICATED Sodium Level 141 MEQ/L Potassium Level 4.2 MEQ/L Chloride Level 108 MEQ/L Carbon Dioxide Level 27.0 MEQ/L Anion Gap 6 MEQ/L Blood Urea Nitrogen 18 MG/DL Creatinine 1.30 MG/DL Estimat Glomerular Filtration 44 ML/MIN Rate Random Glucose 91 MG/DL Calcium Level 9.7 MG/DL Total Bilirubin 0.1 MG/DL Aspartate Amino Transf 16 U/L (AST/SGOT) Alanine Aminotransferase 40 U/L (ALT/SGPT) Alkaline Phosphatase 98 U/L Total Protein 7.6 GM/DL Albumin 3.7 GM/DL MDM Medical Decision Making Medical Screen Exam Complete: Yes Emergency Medical Condition: Yes Interpretation(s) EKG shows normal sinus rhythm normal axis normal R-wave progression. Intervals within normal limits. No concerning ST T changes. This a normal EKG. Differential Diagnosis Hematoma, seroma, abscess is less likely, acute kidney injury seems unlikely. Narrative Course Patient 46-year-old female roomed in emergency department for swelling over her graft site. I agree the patient does need diagnostic imaging. At this time would like to preserve her graft tissue as much as possible and have ordered this CAT scan without IV contrast. Her creatinine is 1.3 which appears to be baseline, hemoglobin 9.7 which is actually a little bit better than the patient' s baseline. Last 24 hours Impressions Abdomen/Pelvis CT 10/18/16 1443 Signed Impressions: Service Date/Time: Tuesday, October 18, 2016 15:29 - CONCLUSION: Findings in the right lower quadrant are congruous with prior ultrasound demonstrating renal transplant and collateral fluid collection. There is also a small amount of free fluid in the cul-de-sac. Also noted is a fluid collection in the right lower quadrant deep to Ben's fascia and adjacent to the rectus muscles which appears possibly contiguous with the pelvic fluid collection; a subcutaneous collection measures up to 5.4 cm in width. Santy Rosen MD Discussed the above findings with Dr. Rosen this specific question at this may be blood. Dr. Rosen agrees that this could be blood in the only way to tell for sure may be to do a contrasted scan. I discussed with him apparently the patient does have comparison ultrasounds recently which does show perinephric fluid collection in this fluid collection appears to his extended outside the peritoneal cavity and appears to be what were feeling in the right lower quadrant. So this fluid collection is expanding. The patient was discussed with Dr. Rojo and given the patient is hemodynamically stable her creatinine is at baseline and her hemoglobin is actually improving even if hematoma is to be considered it does not appear to be at the point where it is rapidly expanding causing hemodynamic instability or acute surgical emergency. We did discuss briefly the possibility of performing a CAT scan with IV contrast but in my impression this is not indicated clinically at this time. Dr. Rojo agrees and would be happy to see the patient in follow-up. All this was discussed with the patient and she states that she does have a follow-up appointment with Dr. Rojo in the morning. I'm comfortable at this time that she can be discharged a bleed follow-up as an outpatient. She seems very reliable and I discussed with her return to ED criteria per Diagnosis Primary Impression: Perinephric fluid collection Additional Instructions: Follow-up with Dr. Gil tomorrow as scheduled. Do not lift anything heavier than gallon milk. Disposition: 01 DISCHARGE HOME Condition: Stable José Miguel Herman MD Oct 18, 2016 14:45
[2016-10-18 15:11] VITALS: BP 135/80; PULSE 96; RESP 17; O2SAT 100
[2016-10-18 15:25] LABS: AUTOMATED NEUTROPHIL # 8.3 TH/MM3 (1.8-7.7); BASOPHIL # 0.1 TH/MM3 (0-0.2); BASOPHIL % 1.5 % (0.0-2.0); EOSINOPHIL # 0.1 TH/MM3 (0-0.4); EOSINOPHIL % 0.6 % (0.0-4.0); HEMATOCRIT 29.6 % (35.0-46.0); HEMO FLAGS DIFF FINAL; LYMPH % 5.4 % (9.0-44.0); LYMPHOCYTE # 0.5 TH/MM3 (1.0-4.8); MEAN CELL VOLUME 91.6 FL (80.0-100.0); MEAN CORPUSCULAR HGB CONC 32.7 % (32.0-36.0); MONO % 6.5 % (0.0-8.0); PLATELET COUNT 310 TH/MM3 (150-450); RED BLOOD COUNT 3.23 MIL/MM3 (4.00-5.30); WHITE BLOOD COUNT 9.7 TH/MM3 (4.0-11.0)
[2016-10-18 15:37] LABS: APTT (PATIENT) 23.5 SEC (24.3-30.1); INTERNATIONAL NORMALIZED RATIO 0.9 RATIO; PROTHROMBIN TIME - PATIENT 10.2 SEC (9.8-11.6)
[2016-10-18 15:43] LABS: BLOOD, URINE NEG (NEG); COMMENT (UR) CULT NOT INDICATED; CULTURE IF INDICATED CULT NOT INDICATED; GLUCOSE,URINE NEG (NEG); KETONE, URINE NEG (NEG); NITRITE,URINE NEG (NEG); URINE COLOR LIGHT-YELLOW (YELLW/STRAW)
[2016-10-18 16:11] LABS: ALKALINE PHOSPHATASE 98 U/L (45-117); ALT (GPT) 40 U/L (10-53); ANION GAP 6 MEQ/L (5-15); AST (GOT) 16 U/L (15-37); BLOOD UREA NITROGEN 18 MG/DL (7-18); CHLORIDE 108 MEQ/L (98-107); GLOMERULAR FILTRATION RATE 44 ML/MIN (>89); POTASSIUM 4.2 MEQ/L (3.5-5.1); SODIUM (NA) 141 MEQ/L (136-145); TOTAL BILIRUBIN ADULT 0.1 MG/DL (0.2-1.0)
--- NOTE | 2016-10-18 16:34 | RADRPT ---
EXAM DATE/TIME: 10/18/2016 15:29 [facility] COMPARISON: US KIDNEY / TRANSPLANT, October 08, 2016, 9:41. INDICATIONS : Abdomen pain, evaluate for mass. ORAL CONTRAST: No oral contrast ingested. RADIATION DOSE: 10.49 CTDIvol (mGy) MEDICAL HISTORY : Diabetes mellitus type 1. Cardiovascular disease SURGICAL HISTORY : Gastric bypass. ENCOUNTER: Initial ACUITY: 1 day PAIN SCALE: 2/10 LOCATION: abdomen TECHNIQUE: Volumetric scanning of the abdomen and pelvis was performed. Using automated exposure control and ad justment of the mA and/or kV according to patient size, radiation dose was kept as low as reasonably achievable to obtain optimal diagnostic quality images. 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 A postoperative ult rasound had demonstrated a fluid collection lateral to the transplanted kidneys measuring 7.9 x 6.2 x 3[address] scan demonstrates multiple hemoclips in the right lower quadrant with a conglomera te of mass and fluid adjacent to these hemoclips which could be explained on the basis of the 2 renal transplants and the lateral soft fluid collection. Some of the fluid appears to track through the r ectus muscle and in the right lower quadrant there is also a subcutaneous fluid collection which niya ures 5.4 x 2.1 cm. There is a minimal amount of free fluid in the cul-de-sac measuring less than 1 c m in thickness.. The uterus is anteverted toward the left. The [place] kidneys measure 5.4 centimeters on the right and 5.2 cm on the left. No hydronephrosis or stones. The urinary bladder margins are smooth. The fluid and transplant to displace the urinary b ladder slightly towards the left. The liver, gallbladder, spleen, pancreas, and adrenal glands are unremarkable for noncontrast scan. No dilated loops of small or large bowel. The visualized lower lungs are clear. Wide windows for [place] detail demonstrate the osseous structures to be intact. No evidence of free intraperitoneal gas. CONCLUSION: Findings in the right lower quadrant are congruous with prior ultrasound demonstrating renal transpla nt and collateral fluid collection. There is also a small amount of free fluid in the cul-de-sac. A lso noted is a fluid collection in the right lower quadrant deep to Ben's fascia and adjacent to t he rectus muscles which appears possibly contiguous with the pelvic fluid collection; a subcutaneous collection measures up to 5.4 cm in width. Santy Rosen MD on October 18, 2016 at 16:19 Board Certified Radiologist. This report was verified electronically.
[2016-10-18 17:05] VITALS: BP 134/87
--- NOTE | 2016-10-19 14:35 | EKG ---
Date Performed: 10/18/2016 Time Performed: 14:57:57 PTAGE: 46 years EKG: Sinus rhythm NORMAL ECG PREVIOUS TRACING : 10/08/2016 13.47 Compared to prior tracing no significant change DOCTOR: Leo Ruiz Interpretating Date/Time 10/19/2016 14:28:56
== END 2016-10-18 17:09 | disposition home or self-care (01) ==
LOC: NEPD 13:38
DX: R19.03 Right lower quadrant abdominal swelling, mass and lump (principal); R39.89 Other symptoms and signs involving the genitourinary system; I10 Essential (primary) hypertension; Z94.0 Kidney transplant status
CPT/HCPCS: 74176; 80053; 81001; 84703; 85025; 85610; 85730; 93005

== ENCOUNTER → 2016-11-16 | Outpatient (CLI) | payer BC ==
[~2016-11-16] MED LIST changes: -CALC500C16 CHEW; +CALC500C6 CHEW; -TACR1 PO; +TACR5 PO
--- NOTE | 2016-11-16 15:13 | RADRPT ---
EXAM DATE/TIME: 11/16/2016 12:51 [facility] COMPARISON: CT ABDOMEN & PELVIS W/O CONTRAST, October 18, 2016, 15:29. INDICATIONS : Kidney transplant. MEDICAL HISTORY : Hypertension. Kidney biopsy. Renal disease. SURGICAL HISTORY : Kidney transplant. ENCOUNTER: Subsequent ACUITY: 2 days PAIN SCORE: 3/10 LOCATION: Right lower quadrant MEASUREMENTS: TRANSPLANT KIDNEY: See below. LOCATION: Right lower quadrant. PREVIOUS ULTRASOUND: Oct 08 2016 ARCUATE ARTERIES RESISTIVE INDEX: Lateral transplant kidney: Upper - 0.7 Mid - 0.6 Lower - 0.6 RA/EIA Ratio: 0.6. Medial transplant kidney: 0.7, 0.7, 0.7. MAIN RENAL ARTERY VELOCITY: (cm/sec): 101. MAIN RENAL VEIN: Patent EXTERNAL ILIAC ARTERY VELOCITY (cm/sec): 176 * NORMAL DOPPLER FINDINGS Arcuate arteries - RI = 0.6 - 0.8 Renal artery = under 200 cm/sec Renal vein = May be monophasic with continuous flow or demonstrate some pulsatility with cardiac cycl e FINDINGS: Complex collection in the subcutaneous tissues may be postoperative hematoma. TRANSPLANT KIDNEYS: Normal cortical thickness and echotexture. No hydronephrosis, stone, or mass. No peritransplant flu id collection. URINARY BLADDER: Within normal limits given the degree of distension. CONCLUSION: Intact transplant kidneys without evidence of vascular compromise or hydronephrosis Arturo Arrieta MD on November 16, 2016 at 15:00 Board Certified Radiologist. This report was verified electronically.
== END ==
LOC: HRAD 12:26
PROVIDERS: ATTEND Internal Medicine Nephrology
DX: Z48.22 Encounter for aftercare following kidney transplant (principal); R18.8 Other ascites; Z94.0 Kidney transplant status
CPT/HCPCS: 76776